=== PATIENT | female | born 1985 | race Caucasian/White ===

== ENCOUNTER → 2017-04-11 13:21 | Outpatient (REF) | payer MEDICAID, SELFPAY ==
[2017-04-11 19:09] LABS: Amphetamine/Metha Screen,Urine Negative ng/mL (<1000); Barbiturates Screen,Urine Negative ng/mL (<200); Benzodiazepines Screen,Urine Negative ng/mL (200); Cannabinoid Screen,Urine Negative ng/mL (<50); Cocaine Screen,Urine Negative ng/g (<300); Methadone Screen,Urine Negative ng/mL (<300); Opiate Screen,Urine Negative ng/mL (<300); Phencyclidine Screen,Urine Negative ng/mL (<25)
== END ==
LOC: LAB 13:21
PROVIDERS: Visit Provider Nurse Practitioner Family
DX: Z79.899 Other long term (current) drug therapy (principal)
CPT/HCPCS: 80305

== ENCOUNTER → 2017-05-14 17:30 | Outpatient (REF) | payer MEDICAID, SELFPAY | LOC: LAB 17:30 | PROVIDERS: Visit Provider Nurse Practitioner Obstetrics & Gynecology | DX: Z34.90 Encounter for supervision of normal pregnancy, unspecified, unspecified trimester (principal) | CPT/HCPCS: 86403 ==

== ENCOUNTER 2017-06-03 18:40 | Outpatient (CLI) | payer MEDICAID, SELFPAY ==
[2017-06-03 18:50] VITALS: BMI 30.9
[2017-06-03 19:08] LABS: Microscopic, Urine URINE MICROSCOPIC (MICROSCOPIC)
[2017-06-03 19:11] LABS: Appearance,Urine CLEAR (Clear); Bilirubin,Urine Negative (Negative); Blood, Urine 1+ (Negative); Color,Urine YELLOW (Yellow); Glucose,Urine (UA) Negative (Negative); Ketones,Urine Negative (Negative); Leukocyte Esterase,Urine TRACE (Negative); Nitrate,Urine Negative (Negative); Protein,Urine Negative (Negative); Urobilinogen,Urine 0.2 EU/dl (0.2)
[2017-06-03 19:15] VITALS: BP 132/85; PULSE 121; RESP 18; TEMP 36.9; O2SAT 99; BMI 30.9
[2017-06-03 19:27] LABS: Amphetamine/Metha Screen,Urine Negative ng/mL (<1000); Barbiturates Screen,Urine Negative ng/mL (<200); Benzodiazepines Screen,Urine Negative ng/mL (200); Cannabinoid Screen,Urine Negative ng/mL (<50); Cocaine Screen,Urine Negative ng/g (<300); Methadone Screen,Urine Negative ng/mL (<300); Opiate Screen,Urine Negative ng/mL (<300); Phencyclidine Screen,Urine Negative ng/mL (<25)
[2017-06-03 19:59] LABS: Bacteria,Urine 1+ /lpf; WBC,Urine Occasional #/hpf (0-3)
== END 2017-06-03 20:44 | disposition home or self-care (01) ==
LOC: OBOUT 18:45 → OB 18:48
PROVIDERS: PCP Nurse Practitioner Obstetrics & Gynecology; Visit Provider Obstetrics & Gynecology
DX: O60.03 Preterm labor without delivery, third trimester (principal); Z3A.38 38 weeks gestation of pregnancy
CPT/HCPCS: 59025; 80305; 81001

== ENCOUNTER 2017-06-11 05:08 | Inpatient (IN) ==
[2017-06-11 05:45] LABS: Appearance,Urine CLEAR (Clear); Bilirubin,Urine Negative (Negative); Blood, Urine 1+ (Negative); Color,Urine YELLOW (Yellow); Glucose,Urine (UA) Negative (Negative); Ketones,Urine Negative (Negative); Leukocyte Esterase,Urine Negative (Negative); Microscopic, Urine URINE MICROSCOPIC (MICROSCOPIC); Protein,Urine TRACE (Negative); Specific Gravity, Urine 1.015 (1.005-1.030); Urobilinogen,Urine 0.2 EU/dl (0.2)
[2017-06-11 05:46] LABS: Basophils # 0.1 K/mm3 (0-0.2); Basophils % 0.3 % (0.1-2.0); Eosinophils # 0.2 K/mm3 (0.0-0.4); Eosinophils % 1.3 % (0.1-12.0); Hematocrit 35.5 % (37.0-47.0); Lymphocytes % 19.8 K/mm3 (10-50); Mean Corpuscular Hemoglobin 32.4 pg (27.0-31.2); Mean Corpuscular Volume 95.3 fl (81-99); Mean Platelet Volume 8.9 fl (7.4-10.4); Monocytes # 0.8 K/mm3 (0.1-1.0); Monocytes % 5.2 % (1.7-9.3); Neutrophils % 73.3 % (37.0-80.0); Platelet Count 201 K/mm3 (142-424); Red Blood Count 3.72 M/mm3 (4.20-5.40); Red Cell Distribution Width 13.2 % (11.5-17.5)
[2017-06-11 05:52] LABS: Bacteria,Urine Trace /lpf; Squamous Epithelial Cell,Urine 20-50 #/hpf (0-5)
[2017-06-11 06:05] LABS: Anisocytosis 1+; Hypochromasia 1+; Lymphocytes % 16 % (10-50); Monocytes % 5 % (2-9); Neutrophils % 79 % (42-76); Stomatocytes 1+; Total Cells Counted 100
[2017-06-11 07:43] LABS: Amphetamine/Metha Screen,Urine Negative ng/mL (<1000); Barbiturates Screen,Urine Negative ng/mL (<200); Benzodiazepines Screen,Urine Negative ng/mL (200); Cannabinoid Screen,Urine Negative ng/mL (<50); Cocaine Screen,Urine Negative ng/g (<300); Methadone Screen,Urine Negative ng/mL (<300); Opiate Screen,Urine Negative ng/mL (<300); Phencyclidine Screen,Urine Negative ng/mL (<25)
--- NOTE | 2017-06-11 08:09 | History & Physical Report ---
OB - H&P: HPI Antepartum - History of Present Illness Chief complaint: Contraction History of present illness: She is a 31-year-old 4 para 3 who has a history of fast labor with her last baby. She is 39 weeks gestational age. As result of that she was offered augmentation of labor. She was adolfo on arrival and her nonstress test is reactive. - History of Present Criteria for establishing EDC:: LMP confirmed by 1st trimester US care: good care Ultrasounds: normal 1st trimester US, normal mid trimester US Obstetrical complications: none Medical complications: none [facility] History I have reviewed the patient's past medical history: Yes Medical History: Reports:: Anxiety, Depression, Heart Murmur, Kidney Stones Denies:: Cancer, Diabetes Mellitus Type 1, Diabetes Mellitus Type 2, MRSA Other Medical History: Reports: Other Laterality Cases: Bilateral: Other Other Surgeries: Yes: Colonoscopy, Hernia Repair. No: Amputation: No Fractures: No - *Social History Smoking Status: Current every day smoker Tobacco Type: cigarettes Alcohol Intake: never Substance Use Type: denies use - Psychiatric History Pschychiatric History:: Reports:: Anxiety, Depression *Family Hx:: Diabetes, Coronary Artery Disease, Heart Attack, Hypertension, Cancer, Kidney Disease, Thyroid Disorder, Stroke, Asthma [employer]P [employer]ESS [employer]ENDER history: Spontaneous Para: 3 Meds Home Medications Medication Instructions Recorded Confirmed Type 1 tab PO QDAY 03/07/17 06/11/17 History vitamin,calcium,kmifudai-dpse-zzyvw acid tablet promethazine 12.5 mg tablet 12.5 mg PO Q6H PRN tab 03/07/17 06/11/17 History Gabapentin [Neurontin 600mg 600 mg PO TID 06/08/17 06/11/17 History tablet] raNITIdine HCl [Ranitidine HCl] 150 mg PO BID 06/08/17 06/11/17 History Amoxicillin [Amoxicillin 500mg Tab] 500 mg PO TID 06/11/17 06/11/17 History Allergies Allergy/AdvReac Type Severity Reaction Status Date / Time hydrocodone [HYDROCODONE] Allergy Unknown Verified 06/10/17 11:11 sulfamethoxazole Allergy Unknown Verified 06/10/17 11:11 [From BACTRIM] tramadol [TRAMADOL] Allergy Unknown Verified 06/10/17 11:11 trimethoprim [From BACTRIM] Allergy Unknown Verified 06/10/17 11:11 Epidural Allergy Itchy Uncoded 06/10/17 11:11 OB - H&P: Exam - Physical Exam Vital signs: Temp Pulse Resp BP 98.0 F 83 18 105/56 06/11/17 06:36 06/11/17 06:36 06/11/17 06:36 06/11/17 06:36 - Constitutional no acute distress - Routine Exam Comments: Her cervix is 2 cm 50% and the presenting part is still quite high. She is having contractions every 2 minutes. We will await the baby's head coming down before he ruptured membranes. OB - Results - Labs Labs: Short CBC 06/11/17 Range/Units 05:30 WBC 15.0 H (4.8-10.8) K/mm3 Hgb 12.0 L (12.2-16.2) g/dL Hct 35.5 L (37.0-47.0) % Plt Count 201 (142-424) K/mm3 Urine 06/11/17 Range/Units 05:18 Urine Color Yellow (Yellow) Urine Appearance Clear (Clear) Urine pH 7.0 (5.0-8.5) Ur Specific [place] 1.015 (1.005-1.030) Urine Protein Trace (Negative) Urine Glucose (UA) Negative (Negative) OB - A/P Antepartum (1) Normal delivery at term Current visit: Yes Status: Acute - Additional Plan Planning to breastfeed?: Yes Plan: expectant management (She has been) Additional Information:: She has been started on IV oxytocin and she is adolfo now every 2 minutes. Her cervix is 2 cm dilated. We will allow the head to come down a little more before we elected to treat her membranes.
--- NOTE | 2017-06-11 09:43 | Progress Note ---
Labor Note - Subjective: Date: 06/11/17 Time: 09:42 regular contraction - Objective: NST:: Reactive Contractions:: every 2-3 minutes Cervical Dilation:: 2-3 Effacement:: 75% Station: -3 Membranes: articially ruptured Comment:: Copious clear fluid - Fetus: Monitoring?: Yes monitoring type:: Internal and External Comment:: I inserted and IUPC - Assessment: Labor progressing?: Yes Cephalopelvic disproportion?: No Patient Problems: All Active Problems Tooth fracture (Acute) Dental caries (Acute) Normal delivery at term (Acute) Low back pain (Chronic) (Acute) - Plan: Anesthesia for epidural?: No Continue to labor down?: Yes Plan for ?: No Continue to monitor?: Yes Start pushing?: No Comment:: I ruptured her membranes and inserted and IUPC. The nonstress test is reactive. She is adolfo every 2 minutes.
--- NOTE | 2017-06-11 11:54 | Progress Note ---
Labor Note - Subjective: Date: 06/11/17 Time: 11:53 regular contraction - Objective: NST:: Reactive Contractions:: every 2-3 minutes Cervical Dilation:: 4 Effacement:: 75% Station: -2 Membranes: articially ruptured - Fetus: Monitoring?: Yes monitoring type:: Internal and External - Assessment: Labor progressing?: Yes Cephalopelvic disproportion?: No Patient Problems: All Active Problems Tooth fracture (Acute) Dental caries (Acute) Normal delivery at term (Acute) Low back pain (Chronic) (Acute) - Plan: Anesthesia for epidural?: Yes Continue to labor down?: Yes Plan for ?: No Continue to monitor?: Yes Start pushing?: No
--- NOTE | 2017-06-11 13:41 | Progress Note ---
Labor Note - Subjective: Date: 06/11/17 Time: 13:40 regular contraction - Objective: NST:: Reactive Contractions:: every 2-3 minutes Cervical Dilation:: 5 Effacement:: 75% Station: -2 Membranes: articially ruptured - Fetus: Monitoring?: Yes monitoring type:: Internal and External - Assessment: Labor progressing?: Yes Cephalopelvic disproportion?: No Patient Problems: All Active Problems Tooth fracture (Acute) Dental caries (Acute) Normal delivery at term (Acute) Low back pain (Chronic) (Acute) - Plan: Anesthesia for epidural?: Yes Continue to labor down?: Yes Plan for ?: No Continue to monitor?: Yes Start pushing?: No
--- NOTE | 2017-06-11 15:14 | Progress Note ---
Labor Note - Subjective: Date: 06/11/17 Time: 15:13 regular contraction - Objective: Contractions:: every 2-3 minutes Cervical Dilation:: 6 Effacement:: 100% Station: -2 Membranes: articially ruptured - Fetus: Monitoring?: Yes monitoring type:: Internal - Assessment: Labor progressing?: Yes Cephalopelvic disproportion?: No Patient Problems: All Active Problems Tooth fracture (Acute) Dental caries (Acute) Normal delivery at term (Acute) Low back pain (Chronic) (Acute) - Plan: Anesthesia for epidural?: Yes Continue to labor down?: Yes Plan for ?: No Continue to monitor?: Yes Start pushing?: No Comment:: She had a prolonged deceleration with tetanic contraction. She had 3 contractions right on top of each other. The heart rate has now recovered. Her oxytocin was turned off. We will start her oxytocin back at 2 mU/min. We will continue to monitor her closely. She does have an intrauterine pressure catheter with an amnioinfusion going.
--- NOTE | 2017-06-11 17:13 | Progress Note ---
Labor Note - Subjective: Date: 06/11/17 Time: 17:12 regular contraction - Objective: NST:: Reactive Contractions:: every 2-3 minutes Cervical Dilation:: 9 Effacement:: 100% Membranes: articially ruptured - Fetus: Monitoring?: Yes monitoring type:: Internal - Assessment: Labor progressing?: Yes Cephalopelvic disproportion?: No Patient Problems: All Active Problems Tooth fracture (Acute) Dental caries (Acute) Normal delivery at term (Acute) Low back pain (Chronic) (Acute) - Plan: Anesthesia for epidural?: Yes Continue to labor down?: Yes Plan for ?: No Continue to monitor?: Yes Start pushing?: No Comment:: She has had some significant decelerations and her oxytocin is now turned off. Her contractions have become weaker. As result of that we will go ahead and start restart her oxytocin since the heart rate is now stabilized. She has significant molding of the head and there is just a small amount of cervix anteriorly. Hopefully the baby's head will descend with the contractions. I had her push slightly and it certainly brought the baby's head down a little bit so will see how she does with more oxytocin.
--- NOTE | 2017-06-11 19:16 | Progress Note ---
Labor Note - Subjective: Date: 06/11/17 Time: 19:15 regular contraction - Objective: NST:: Reactive Contractions:: every 2-3 minutes Cervical Dilation:: 9-10 Effacement:: 100% Station: 0 Membranes: articially ruptured - Fetus: Monitoring?: Yes monitoring type:: Internal - Assessment: Labor progressing?: Yes Cephalopelvic disproportion?: No Patient Problems: All Active Problems Tooth fracture (Acute) Dental caries (Acute) Normal delivery at term (Acute) Low back pain (Chronic) (Acute) - Plan: Anesthesia for epidural?: Yes Continue to labor down?: Yes Plan for ?: No Continue to monitor?: Yes Start pushing?: Yes Additional information:: She is feeling a little more pressure in the baby's head is come down. We will go ahead and have her start pushing. She is fully dilated.
--- NOTE | 2017-06-11 19:52 | Procedure Note ---
- Delivery Note Delivery Date:: 06/11/17 Delivery Time:: 19:39 Anesthesia Type: Epidural Was labor medically induced?: No Infant delivered prior to 39 weeks?: No Infant Gender: Female at 1 minute: 8 at 5 minutes: 9 Delivery Procedure:: She is a 31-year-old 4 para 3 who is 39+ weeks gestational age. She came in having a few contractions and was found to be 2 cm dilated. As result of this we elected to augment her labor. She had her membranes ruptured and under labor epidural progressed to full dilation. She delivered spontaneously a liveborn female child at 7:39 PM in the June 11, 2017. The baby had Apgars of 8 at 1 minute and 9 at 5 minutes. On deliver the head it was noted that there was a loose nuchal cord. Was able to easily reduce the cord. This is followed by the anterior shoulder and the rest of his body atraumatically. The baby was stimulated and cried spontaneously. The oropharynx and nasopharynx were bulb suctioned. The cord was then clamped and after 1 minute. The baby was then handed off to nurses who assigned Apgars of 8 at 1 minute and 9 at 5 minutes. We then obtained cord blood as well as cord pH. Patient then received IV oxytocin. Using gentle traction on the cord and countertraction on the fundus I was able to easily deliver the placenta intact. Had a normal three-vessel cord. There were no perineal or vaginal lacerations. She has O+ blood, she is rubella immune and was group B streptococcus negative. She plans to bottle feed. Her refractory repairer is Dr. Garay. Estimated blood loss was approximately 400 cc. Placental Delivery Description: Spontaneous
[2017-06-12 06:29] LABS: Hematocrit 28.2 % (37.0-47.0); Hemoglobin 9.7 g/dL (12.2-16.2)
--- NOTE | 2017-06-12 08:02 | Progress Note ---
Internal Medicine - PN: Subj *Date: 06/12/17 *Time: 08:01 Interval history: She is doing well this morning. She is eating and drinking and ambulating. She is bottlefeeding. Her lochia is normal. Exam Vital signs and Labs for Last 24 Hours: Temp Pulse Resp BP 98.0 F 83 18 105/56 06/11/17 06:36 06/11/17 06:36 06/11/17 06:36 06/11/17 06:36 Laboratory Results - last 24 hr 06/12/17 06:15: Hgb 9.7 L, Hct 28.2 L I & O for Last 24 hours: Intake & Output 06/09/17 06/10/17 06/11/17 06/12/17 11:59 11:59 11:59 11:59 Weight 168 lb 2 oz - Constitutional no acute distress Assessment and Plan (1) Normal delivery at term Current visit: Yes Status: Acute Category: Medical Code(s): O80 - Encounter for full-term uncomplicated delivery - Assessment and plan all Dx Assessment and Plan for all problems:: She continues to do very well. She is eating and taking and ambulating. Her blood counts are stable. We will plan to send her home tomorrow.
[2017-06-12 20:22] VITALS: BP 121/66
--- NOTE | 2017-06-13 08:00 | Discharge Summary ---
General - General Admission date:: 06/11/17 Discharge date: 06/13/17 HPI HPI: She is a 31-year-old 4 now para 4 who is 39-1/2 weeks gestational age. She was having a few contractions we elected to augment her labor. Hospital Course Hospital Course: She was started on IV oxytocin had her membranes ruptured and progressed to full dilation. She delivered spontaneously a viable female child. Baby had Apgars of 8 at 1 minute and She has done well and has remained afebrile throughout her hospitalization. She is eating and drinking and ambulating. She is bottlefeeding. Her lochia is normal. She is discharged home to follow-up with me in approximately 2 weeks time. We will do a bilateral salpingectomy when she is 6 weeks . Objective Vital signs: Temp Pulse Resp BP Pulse Ox 97.3 F L 75 18 121/66 99 06/12/17 19:58 06/12/17 19:58 06/12/17 19:58 06/12/17 19:58 06/12/17 19:58 no acute distress DS: Diagnosis - Discharge Diagnosis (1) Normal delivery at term Status: Acute Discharge Plan - Patient Discharge Instructions ACTIVITY: No heavy lifting DIET: continue same diet - Follow up Plan Disposition: Home, Self-Usp Medications: Home Medications Medication Instructions Recorded Confirmed Type 1 tab PO DAILY 03/07/17 06/11/17 History vitamin,calcium,lglawixs-nfoi-gwabl acid tablet promethazine 12.5 mg tablet 12.5 mg PO Q6H PRN tab 03/07/17 06/11/17 History Gabapentin [Neurontin 600mg 600 mg PO TID 06/08/17 06/11/17 History tablet] raNITIdine HCl [Ranitidine HCl] 150 mg PO BID 06/08/17 06/11/17 History Amoxicillin [Amoxicillin 500mg 500 mg PO TID 06/12/17 06/12/17 History Cap] Prescriptions/Medication Reconciliation: Continue vitamin,calcium,lxuwpjmu-lrxx-qtnrk acid tablet 1 tab PO DAILY promethazine 12.5 mg tablet 12.5 mg PO Q6H PRN tab PRN Reason: NAUSEA/VOMITING Gabapentin [Neurontin 600mg tablet] 600 mg PO TID raNITIdine HCl [Ranitidine HCl] 150 mg PO BID Amoxicillin [Amoxicillin 500mg Cap] 500 mg PO TID
== END 2017-06-13 09:40 | disposition home or self-care (01) ==
LOC: OB 05:08
PROVIDERS: ADMIT Nurse Practitioner Obstetrics & Gynecology; ATTEND Nurse Practitioner Obstetrics & Gynecology

== ENCOUNTER → 2017-08-02 14:24 | Outpatient (CLI) | payer MEDICAID, SELFPAY ==
[2017-08-02 19:08] LABS: Amphetamine/Metha Screen,Urine Negative ng/mL (<1000); Barbiturates Screen,Urine Negative ng/mL (<200); Benzodiazepines Screen,Urine Positive ng/mL (200); Cannabinoid Screen,Urine Negative ng/mL (<50); Cocaine Screen,Urine Negative ng/g (<300); Methadone Screen,Urine Negative ng/mL (<300); Opiate Screen,Urine Negative ng/mL (<300); Phencyclidine Screen,Urine Negative ng/mL (<25)
== END ==
PROVIDERS: Visit Provider Nurse Practitioner Family
DX: Z79.899 Other long term (current) drug therapy (principal)
CPT/HCPCS: 80305

== ENCOUNTER → 2017-09-27 14:59 | Outpatient (REF) | payer MEDICAID, SELFPAY ==
[2017-09-27 21:05] LABS: Amphetamine/Metha Screen,Urine Negative ng/mL (<1000); Barbiturates Screen,Urine Negative ng/mL (<200); Benzodiazepines Screen,Urine Positive ng/mL (<200); Cannabinoid Screen,Urine Negative ng/mL (<50); Cocaine Screen,Urine Negative ng/mL (<300); Methadone Screen,Urine Negative ng/mL (<300); Opiate Screen,Urine Positive ng/mL (<300); Phencyclidine Screen,Urine Negative ng/mL (<25)
== END ==
LOC: LAB 14:59
PROVIDERS: Visit Provider Nurse Practitioner Family
DX: Z79.899 Other long term (current) drug therapy (principal)
CPT/HCPCS: 80305

== ENCOUNTER → 2017-10-30 13:01 | Outpatient (REF) | payer MEDICAID, SELFPAY ==
[2017-10-30 18:10] LABS: Amphetamine/Metha Screen,Urine Negative ng/mL (<1000); Barbiturates Screen,Urine Negative ng/mL (<200); Benzodiazepines Screen,Urine Positive ng/mL (<200); Cannabinoid Screen,Urine Negative ng/mL (<50); Cocaine Screen,Urine Negative ng/mL (<300); Methadone Screen,Urine Negative ng/mL (<300); Opiate Screen,Urine Negative ng/mL (<300); Phencyclidine Screen,Urine Negative ng/mL (<25)
== END ==
LOC: LAB 13:01
PROVIDERS: Visit Provider Nurse Practitioner Family
DX: Z79.899 Other long term (current) drug therapy (principal)
CPT/HCPCS: 80305

== ENCOUNTER → 2017-11-28 11:38 | Outpatient (CLI) | payer MEDICAID, SELFPAY | PROVIDERS: PCP Nurse Practitioner Family; Visit Provider Nurse Practitioner Family | DX: Z79.899 Other long term (current) drug therapy (principal) ==

== ENCOUNTER → 2018-01-06 16:42 | Outpatient (CLI) | payer MEDICAID, SELFPAY ==
[2018-01-06 17:05] LABS: Amphetamine/Metha Screen,Urine Negative ng/mL (<1000); Barbiturates Screen,Urine Negative ng/mL (<200); Benzodiazepines Screen,Urine Positive ng/mL (<200); Cannabinoid Screen,Urine Negative ng/mL (<50); Cocaine Screen,Urine Negative ng/mL (<300); Methadone Screen,Urine Negative ng/mL (<300); Opiate Screen,Urine Negative ng/mL (<300); Phencyclidine Screen,Urine Negative ng/mL (<25)
[2018-01-11 12:11] LABS: Alprazolam Positive (.); Benzodiazepines Positive ng/mL (Cutoff=100); Clonazepam Negative (Cutoff=100); Flurazepam Negative (Cutoff=100); Lorazepam Negative (Cutoff=100); Midazolam Negative (Cutoff=100); Temazepam Negative (Cutoff=100); Triazolam Negative (Cutoff=100)
== END ==
PROVIDERS: Visit Provider Nurse Practitioner Family
DX: G62.9 Polyneuropathy, unspecified (principal)
CPT/HCPCS: 80305; 80346

== ENCOUNTER → 2018-01-31 14:11 | Outpatient (CLI) | payer MEDICAID, SELFPAY ==
[2018-01-31 17:19] LABS: Amphetamine/Metha Screen,Urine Negative ng/mL (<1000); Barbiturates Screen,Urine Negative ng/mL (<200); Benzodiazepines Screen,Urine Positive ng/mL (<200); Cannabinoid Screen,Urine Negative ng/mL (<50); Cocaine Screen,Urine Negative ng/mL (<300); Methadone Screen,Urine Negative ng/mL (<300); Opiate Screen,Urine Positive ng/mL (<300); Phencyclidine Screen,Urine Negative ng/mL (<25)
[2018-02-12 10:18] LABS: Alprazolam Positive (.); Benzodiazepines Positive ng/mL (Cutoff=100); Clonazepam Negative (Cutoff=100); Flurazepam Negative (Cutoff=100); Lorazepam Negative (Cutoff=100); Midazolam Negative (Cutoff=100); Temazepam Negative (Cutoff=100); Triazolam Negative (Cutoff=100)
[2018-02-12 16:18] LABS: Opiates Negative ng/mL (Cutoff=100)
== END ==
PROVIDERS: Physician Assistant; Visit Provider Nurse Practitioner Family
DX: Z79.899 Other long term (current) drug therapy (principal)
CPT/HCPCS: 80305; 80346; 80361; G0480

== ENCOUNTER → 2018-05-09 17:09 | Outpatient (CLI) | payer MEDICAID, SELFPAY ==
[2018-05-09 18:25] LABS: Amphetamine/Metha Screen,Urine Negative ng/mL (<1000); Barbiturates Screen,Urine Negative ng/mL (<200); Benzodiazepines Screen,Urine Positive ng/mL (<200); Cannabinoid Screen,Urine Negative ng/mL (<50); Cocaine Screen,Urine Negative ng/mL (<300); Methadone Screen,Urine Negative ng/mL (<300); Opiate Screen,Urine Negative ng/mL (<300); Phencyclidine Screen,Urine Negative ng/mL (<25)
== END ==
PROVIDERS: Visit Provider Nurse Practitioner Family
DX: Z79.899 Other long term (current) drug therapy (principal)
CPT/HCPCS: 80305

== ENCOUNTER → 2018-08-08 12:25 | Outpatient (CLI) | payer MEDICAID, SELFPAY ==
[2018-08-08 13:38] LABS: Basophils # 0.1 K/mm3 (0-0.2); Basophils % 0.6 % (0.1-2.0); Eosinophils # 0.1 K/mm3 (0.0-0.4); Eosinophils % 1.1 % (0.1-12.0); Hematocrit 44.7 % (37.0-47.0); Lymphocytes # 2.4 K/mm3 (0.7-4.5); Lymphocytes % 30.7 % (10-50); Mean Corpuscular HGB Conc 31.3 g/dL (31.8-35.4); Mean Corpuscular Hemoglobin 31.7 pg (27.0-31.2); Mean Corpuscular Volume 101.2 fl (81-99); Mean Platelet Volume 8.5 fl (7.4-10.4); Monocytes # 0.5 K/mm3 (0.1-1.0); Monocytes % 5.8 % (1.7-9.3); Neutrophils # 4.9 K/mm3 (1.8-7.8); Neutrophils % 61.8 % (37.0-80.0); Platelet Count 283 K/mm3 (142-424); Red Blood Count 4.41 M/mm3 (4.20-5.40); Red Cell Distribution Width 13.3 % (11.5-17.5); White Blood Count 7.9 K/mm3 (4.8-10.8)
[2018-08-08 15:04] LABS: Alanine Aminotransferase 22 U/L (12-78); Albumin/Globulin Ratio 1.3 (1.1-1.8); Alkaline Phosphatase 69 U/L (46-116); Anion Gap 15.5 mEq/L (5-15); Aspartate Amino Transferase 12 U/L (15-37); Bilirubin,Total 0.4 mg/dL (0.2-1.0); Blood Urea Nitrogen 8 mg/dL (7-18); Calcium 8.7 mg/dL (8.5-10.1); Carbon Dioxide 25 mmol/L (21.0-32.0); Chloride 104 mmol/L (98-107); Chol/HDL Ratio 5.7 (1-3.5); Cholesterol 165 mg/dL (140-200); Creatinine,Serum 0.94 mg/dL (0.55-1.02); Estimated Glomerular Filt Rate 69 ml/min (>60); Free T4 (Free Thyroxine) 1.38 ng/dl (0.76-1.46); GFR (African American) 84 ML/MIN (>60); Globulin 3.2 gm/dl (1.3-3.2); Glucose 86 mg/dL (74-106); HDL Cholesterol 29 mg/dL (29-89); LDL Cholesterol 100 mg/dL (0-130); Potassium 3.5 mmoL/L (3.5-5.1); Sodium 141 mmol/L (136-145); Thyroid Stimulating Hormone 1.43 uIU/ml (0.358-3.740); Total Protein,Serum 7.2 gm/dL (6.4-8.2); Triglycerides 182 mg/dL (30-200); VLDL Cholesterol 36 mg/dL (0-40)
[2018-08-08 15:43] LABS: Erythrocyte Sedimentation Rate 15 mm/hr (0-20)
[2018-08-08 18:33] LABS: C-Reactive Protein < 0.2 mg/L (0.0-0.9)
[2018-08-09 16:08] LABS: PTT-LA 41.8 sec (0.0-51.9); dRVVT 46.9 sec (0.0-47.0)
[2018-08-09 18:36] LABS: Lupus Reflex Interpretation Comment: (.); RA Latex Turbid. <10.0 IU/mL (0.0-13.9); Triiodothyronine (T3) Free 3.4 pg/mL (2.0-4.4)
[2018-08-09 18:37] LABS: Vitamin D 25 Hydroxy 34.6 ng/mL (30.0-100.0)
[2018-08-11 03:27] LABS: Anti-Cyclic Citrullinated Pept 2 units (0-19)
[2018-08-11 11:10] LABS: Anti-Centromere B Antibodies <0.2 AI (0.0-0.9); Anti-Jo-1 <0.2 AI (0.0-0.9); Anti-Smith Antibody <0.2 AI (0.0-0.9); Antichromatin Antibodies 0.3 AI (0.0-0.9); Antiscleroderma-70 Antibodies <0.2 AI (0.0-0.9); RNP Antibodies <0.2 AI (0.0-0.9); Sjogren's Anti-SS-A <0.2 AI (0.0-0.9); Sjogren's Anti-SS-B <0.2 AI (0.0-0.9)
[2018-08-11 18:17] LABS: Anti-DNA (DS) Ab Qn 1 IU/mL (0-9)
== END ==
PROVIDERS: Visit Provider Nurse Practitioner Family
DX: M25.50 Pain in unspecified joint (principal); R53.83 Other fatigue; F41.9 Anxiety disorder, unspecified; Z79.899 Other long term (current) drug therapy
CPT/HCPCS: 80053; 80061; 82652; 84439; 84443; 84481; 85025; 85613; 85651; 86140; 86200; 86225; 86235; 86431

== ENCOUNTER → 2018-12-19 13:57 | Outpatient (CLI) | payer MEDICAID, SELFPAY ==
[2018-12-19 14:54] LABS: Amphetamine/Metha Screen,Urine Negative ng/mL (<1000); Barbiturates Screen,Urine Negative ng/mL (<200); Benzodiazepines Screen,Urine Positive ng/mL (<200); Cannabinoid Screen,Urine Negative ng/mL (<50); Cocaine Screen,Urine Negative ng/mL (<300); Methadone Screen,Urine Negative ng/mL (<300); Opiate Screen,Urine Negative ng/mL (<300); Phencyclidine Screen,Urine Negative ng/mL (<25)
== END ==
PROVIDERS: Visit Provider Nurse Practitioner Family
DX: Z79.899 Other long term (current) drug therapy (principal)
CPT/HCPCS: 80305

== ENCOUNTER → 2018-12-24 14:27 | Outpatient (CLI) | payer MEDICAID, SELFPAY ==
--- NOTE | 2018-12-24 14:41 | XR_ITS ---
PROCEDURE: XR LUMBAR SPINE 2-3V CLINICAL INDICATION: pain Low back pain COMPARISON: LS5 LUMBAR SPINE 5 VIEWS from 10/26/2015 FINDINGS: There is normal alignment. No fracture or dislocation. No lytic or blastic change. Incidental note is made of small bilateral renal calculi measuring up to 3 mm in the lower pole on the left and 1-2 mm in the mid polar region on the right IMPRESSION: 1. Negative lumbar spine. 2. Bilateral nephrolithiasis Dictated by: Balta Carcamo MD 12/24/2018 15:02 Electronically signed by Balta Carcamo MD in [place] 12/24/2018 15:02
--- NOTE | 2018-12-24 14:41 | XR_ITS ---
PROCEDURE: XR THORACIC SPINE 3V CLINICAL INDICATION: pain Upper back pain COMPARISON: No exams were available for comparison FINDINGS: There is normal alignment. No fracture or dislocation. No lytic or blastic change. IMPRESSION: Negative thoracic spine Dictated by: Balta Carcamo MD 12/24/2018 15:01 Electronically signed by Balta Carcamo MD in [place] 12/24/2018 15:01
== END ==
PROVIDERS: PCP Nurse Practitioner Family; Visit Provider Nurse Practitioner Family
DX: M54.5 Low back pain (principal); M54.6 Pain in thoracic spine
CPT/HCPCS: 72072; 72100

== ENCOUNTER → 2019-02-12 14:05 | Outpatient (CLI) | payer OTHER, SELFPAY ==
[2019-02-12 20:04] LABS: Amphetamine/Metha Screen,Urine Negative ng/mL (<1000); Barbiturates Screen,Urine Negative ng/mL (<200); Benzodiazepines Screen,Urine Positive ng/mL (<200); Cannabinoid Screen,Urine Negative ng/mL (<50); Cocaine Screen,Urine Negative ng/mL (<300); Methadone Screen,Urine Negative ng/mL (<300); Opiate Screen,Urine Negative ng/mL (<300); Phencyclidine Screen,Urine Negative ng/mL (<25)
== END ==
PROVIDERS: Visit Provider Nurse Practitioner Family
DX: Z79.899 Other long term (current) drug therapy (principal)
CPT/HCPCS: 80305

== ENCOUNTER → 2019-03-12 10:43 | Outpatient (POV) | payer OTHER, SELFPAY ==
[2019-03-12 10:59] VITALS: BP 166/62; PULSE 94; RESP 18; O2SAT 99; BMI 28.3
--- NOTE | 2019-03-12 11:20 | HMH.PMCON ---
Assessment and Plan (1) Low back pain Current visit: Yes Status: Acute Category: Medical Code(s): M54.5 - Low back pain (2) Lumbar radiculopathy Current visit: Yes Status: Acute Category: Medical Code(s): M54.16 - Radiculopathy, lumbar region - Assessment and plan all Dx Assessment and Plan for all problems:: Unfortunately, the patient does not have any recent imaging of her lumbar spine. We will order an MRI of her lumbar spine to discuss the plan of care. Until then the patient will continue with anti-inflammatories and a home stretching program. She will also stop taking gabapentin at this time, and we will start her on Lyrica 200 mg 1 tablet p.o. twice daily. We will see the patient back in the clinic following her MRI to discuss plan of care. She has been instructed to contact the clinic if she has any concerns before next appointment. Dr. Ramon has reviewed this note and agrees with this plan of care. This note was dictated using voice recognition software and make contain errors or omissions. HPI - Data of Consult Patient: new to practice Consult date: 03/12/19 Requesting Physician: Wilma Timmons APRN Primary Care Provider: Julian Garland MD - Consult Narrative History of present illness: Ms. Carney is a 33 year old female. Who presents today for consultation for low back pain with radiation into her left hip and left leg. Patient says this is been chronic pain for her for more than 20 years. She says she has scoliosis with chronic low back pain. She also says she has chronic left leg pain with numbness and tingling into her left leg. She says this pain is been treated in the past with gabapentin. She initially started on a low dose of gabapentin and is now on 600 mg 1 tablet p.o. 3 times daily. She says that the medication is not working for her any longer. She rates her pain a 8 out of 10. She denies any side effects to the medication. She says her pain is worse with standing or walking and is improved with sitting. She says her knee also hurts when she does long walks. Patient has had physical therapy for greater than 6 weeks. She continues with a home stretching program of exercises learned from physical therapy. She also says that she is using ice and heat therapies along with anti-inflammatories. CC: Wilma Timmons APRN [facility] History I have reviewed the patient's past medical history: Yes Medical History: Reports:: Anxiety, Depression, Gastroesophageal Reflux Disease(GERD), Heart Murmur, Kidney Stones Denies:: Cancer, Diabetes Mellitus Type 1, Diabetes Mellitus Type 2, Internal Pacemaker, MRSA, Seizures *Have you ever received a pneumonia vaccine?: Yes *Have you received a flu vaccine this season?: Yes Other Medical History: Reports: Other. Denies: Blood Transfusion Reaction Laterality Cases: Bilateral: Other Other Surgeries: Yes: BSO, Colonoscopy, Hernia Repair, Tubal Ligation. No: , Pacemaker Amputation: No Fractures: Yes - *Social History Smoking Status: Current every day smoker Tobacco Type: cigarettes # Packs/Day (cigarettes): 1 Alcohol Intake: never Substance Use Type: denies use *Occupational Status:: other Housing: house Household Members: significant other, family *Travel in the last 8 weeks: None - Psychiatric History Pschychiatric History:: Reports:: Anxiety, Depression Family Hx:: Diabetes, Coronary Artery Disease, Heart Attack, Hypertension, Cancer, Kidney Disease, Thyroid Disorder, Stroke, Asthma [employer]IVERSITY [employer]ER history: Spontaneous Review of Systems - Review of Systems Review of Systems General: No recent weight changes, no fever, no sleep disturbances Respiratory: No cough, no shortness of air, no recurring pulmonary infections Cardiovascular/peripheral vascular: No chest pain, no palpitations, no edema, no shortness of breath Gastrointestinal: No new onset incontinence, normal bowel movements reported Genitourinary: No new onset
== END ==
PROVIDERS: PCP Emergency Medicine; Visit Provider Clinical Nurse Specialist Family Health
DX: M54.16 Radiculopathy, lumbar region (principal); M54.5 Low back pain; Z79.891 Long term (current) use of opiate analgesic; Z79.899 Other long term (current) drug therapy; Z88.6 Allergy status to analgesic agent; Z88.1 Allergy status to other antibiotic agents; Z88.8 Allergy status to other drugs, medicaments and biological substances; Z72.0 Tobacco use
CPT/HCPCS: 99202

== ENCOUNTER → 2019-03-13 14:04 | Outpatient (CLI) | payer OTHER, SELFPAY ==
[2019-03-13 15:36] LABS: Amphetamine/Metha Screen,Urine Negative ng/mL (<1000); Barbiturates Screen,Urine Negative ng/mL (<200); Benzodiazepines Screen,Urine Positive ng/mL (<200); Cannabinoid Screen,Urine Negative ng/mL (<50); Cocaine Screen,Urine Negative ng/mL (<300); Methadone Screen,Urine Negative ng/mL (<300); Opiate Screen,Urine Negative ng/mL (<300); Phencyclidine Screen,Urine Negative ng/mL (<25)
== END ==
PROVIDERS: Visit Provider Emergency Medicine
DX: Z79.899 Other long term (current) drug therapy (principal)
CPT/HCPCS: 80305

== ENCOUNTER → 2019-03-24 15:01 | Outpatient (CLI) | payer OTHER, SELFPAY ==
--- NOTE | 2019-03-24 15:03 | MR_ITS ---
PROCEDURE: MR LUMBAR SPINE WO CON CLINICAL INDICATION: BACK PAIN Low back pain, left-sided low back pain with left leg pain and left hip pain COMPARISON: No exams were available for comparison TECHNIQUE: Standard multiplanar multiecho sequences are performed without contrast. 3-D MIP and myelographic images are also rendered and reviewed FINDINGS: Normal alignment. The spinal cord ends at the L1 level. The disc spaces are well preserved. No disc herniation significant bulge canal stenosis or degenerative change evident. The foramina are widely patent. The cauda equina has an unremarkable appearance. IMPRESSION: Negative MRI of the lumbar spine Dictated by: Balta Carcamo MD 03/26/2019 11:35 Electronically signed by Balta Carcamo MD in [place] 03/26/2019 11:35
== END ==
PROVIDERS: PCP Emergency Medicine; Visit Provider Clinical Nurse Specialist Family Health
DX: M54.5 Low back pain (principal)
CPT/HCPCS: 72148; 76376

== ENCOUNTER → 2019-07-09 10:13 | Outpatient (POV) | payer OTHER, SELFPAY ==
[2019-07-09 12:09] VITALS: BP 131/74; PULSE 101; RESP 18; TEMP 36.8; O2SAT 99; BMI 29.2
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
== END ==
PROVIDERS: PCP Emergency Medicine; Visit Provider Clinical Nurse Specialist Family Health
DX: M51.16 Intervertebral disc disorders with radiculopathy, lumbar region (principal); M54.12 Radiculopathy, cervical region
CPT/HCPCS: 99212

== ENCOUNTER → 2019-07-16 13:42 | Outpatient (CLI) | payer OTHER, SELFPAY ==
--- NOTE | 2019-07-16 13:43 | MR_ITS ---
PROCEDURE: MR CERVICAL SPINE WO CON CLINICAL INDICATION: NECK PAIN Neck pain radiating into the shoulders COMPARISON: No exams were available for comparison TECHNIQUE: Standard multiplanar multiecho sequences are performed without contrast. 3-D MIP and myelographic images are also rendered and reviewed FINDINGS: There is slight reversal of cervical lordosis. This is nonspecific and could be due to positioning muscle spasm. The craniocervical junction has an unremarkable appearance. There is normal alignment. The disc spaces are well preserved. No disc herniation, significant degenerative change, foraminal narrowing or canal stenosis evident. IMPRESSION: Reversal of normal cervical lordosis otherwise negative MRI of the cervical spine Dictated by: Balta Carcamo MD 07/17/2019 11:19 Electronically signed by Balta Carcamo MD in [place] 07/17/2019 11:19
== END ==
PROVIDERS: PCP Emergency Medicine; Visit Provider Anesthesiology
DX: M54.2 Cervicalgia (principal)
CPT/HCPCS: 72141; 76376

== ENCOUNTER 2019-07-17 11:08 | Day surgery (SDC) | payer OTHER, SELFPAY ==
[2019-07-17 12:09] VITALS: BP 130/69; PULSE 85; RESP 18; O2SAT 98; BMI 65.3
--- NOTE | 2019-07-17 12:25 | HMH.PMPROC ---
- Procedure Date: 07/17/19 Time: 12:25 Anesthesiologist:: Simone Ramon MD Complications:: None Pre-procedure Diagnosis:: Degenerative disc disease of lumbar spine with lumbar radiculopathy symptoms Post-procedure Diagnosis:: Same Indications for Procedure:: This patient is a pleasant 33-year-old white female who we are treating for low back pain with lumbar radiculopathy symptoms. She has increasing pain in the low back rating down her legs. We will do lumbar epidural steroid injections today to see if this helps with her pain symptoms. Has some increasing neck pain as well. Procedure Details:: Lumbar epidural steroid injection under fluoroscopy Informed consent was obtained and the risk and benefits of the procedure was explained to the patient. The patient was taken to the procedure room. The patient was placed prone on the procedure table. The patient was prepped and draped in sterile fashion. C-arm fluoroscopy was used to view the lumbar spine. Skin and subcutaneous tissues were anesthetized using lidocaine. I placed an 18-gauge epidural needle and advanced into the L4-L5 interspace using fluoroscopic guidance and [id number] to air. After confirmation of needle placement in the epidural space with dye I injected 2 mL of lidocaine 1.5% with Depo-Medrol 80 mg. Patient tolerated the procedure well with no complications. Plan and Disposition:: We will follow-up with her in 2 weeks. Will reevaluate her symptoms at that time.
[2019-07-17 12:31] VITALS: BP 133/78; PULSE 88; RESP 18; O2SAT 98
[2019-07-17 12:34] VITALS: BP 125/85; PULSE 85; RESP 18; O2SAT 98
[2019-07-17 12:44] VITALS: BP 122/76; PULSE 78; RESP 20; O2SAT 98
== END 2019-07-17 12:45 | disposition home or self-care (01) ==
LOC: SC.PAINP 11:10
PROVIDERS: PCP Emergency Medicine; Visit Provider Anesthesiology
DX: M51.16 Intervertebral disc disorders with radiculopathy, lumbar region (principal); Z72.0 Tobacco use; R01.1 Cardiac murmur, unspecified; Z87.442 Personal history of urinary calculi; Z87.448 Personal history of other diseases of urinary system; F41.9 Anxiety disorder, unspecified; G43.909 Migraine, unspecified, not intractable, without status migrainosus; Z88.8 Allergy status to other drugs, medicaments and biological substances; Z88.2 Allergy status to sulfonamides; Z79.899 Other long term (current) drug therapy
CPT/HCPCS: 62323; J1040; Q9966

== ENCOUNTER → 2019-08-04 09:11 | Outpatient (POV) | payer OTHER, SELFPAY ==
[2019-08-04 09:23] VITALS: BP 128/78; PULSE 84; RESP 18; O2SAT 98; BMI 29.2
--- NOTE | 2019-08-04 10:21 | HMH.PAINSOAP ---
[facility] Pain Management SOAP Note Subjective:: Patient is a pleasant 33-year-old white female who we are treating for low back pain. Patient had a lumbar epidural steroid injection to which she states she had a headache afterwards and 3 days of vomiting. She did not contact our clinic in regards to this due to the fact that she states this is normal because this is what happened with her youngins . Patient and I discussed avoiding epidural injections at this time due to this situation. She also made mention of her previous diagnosis of viral meningitis. Patient states that this was many years ago. She rates her pain a 6 out of 10 today mostly in her low back and legs. We did discuss her MRI of her cervical spine which was negative. Patient states that she has nerve damage in her back. ROS General: no recent weight change, no fever, no sleep disturbances Respiratory: no cough, no shortness of air, no recurring pulmonary infections Cardiovascular/Peripheral Vascular: No chest pain, No palpitations, no edema, no shortness of breath. Gastrointestinal: no new onset incontinence, normal bowel movements reported Genitourinary: no new onset incontinence Musculoskeletal: Back pain, leg pain, SI joint pain Psychiatric: normal mood/ affect, Neurological: [denies new onset weakness in extremities], [denies new onset balance issues] Objective:: Physical Exam General: Alert and oriented x3, no acute distress, pleasant and cooperative, [on room air] Lungs: Resps E/U, Symmetrical chest expansion, Eyes: PERRL Musculoskeletal: Flexion and extension of lumbar spine somewhat guarded secondary to pain, deep tendon reflexes normal, strength in upper and lower extremities [5/5], normal gait noted, positive SI joint compression test, Hermitage's test and Leo's test positive on the left side Neurological: speech clear, 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 Patient's been instructed to call the office if she has any issues prior to her next appointment. Dr. Ramon has reviewed this note and agrees with this plan of care. This note was dictated using voice recognition software and may contain errors or omissions [facility] History I have reviewed the patient's past medical history: Yes Medical History: Reports:: Anxiety, Depression, Gastroesophageal Reflux Disease(GERD), Heart Murmur, Kidney Stones Denies:: Cancer, Diabetes Mellitus Type 1, Diabetes Mellitus Type 2, Internal Pacemaker, MRSA, Seizures *Have you ever received a pneumonia vaccine?: Yes *Have you received a flu vaccine this season?: Yes Other Medical History: Reports: Other. Denies: Blood Transfusion Reaction Laterality Cases: Bilateral: Other Other Surgeries: Yes: BSO, Colonoscopy, Hernia Repair, Tubal Ligation. No: , Pacemaker Amputation: No Fractures: Yes - *Social History Smoking Status: Current every day smoker Tobacco Type: cigarettes # Packs/Day (cigarettes): 1 Alcohol Intake: never Substance Use Type: denies use *Occupational Status:: other Housing: house Household Members: significant other, family *Travel in the last 8 weeks: None - Psychiatric History Pschychiatric History:: Reports:: Anxiety, Depression Family Hx:: Diabetes, Coronary Artery Disease, Heart Attack, Hypertension, Cancer, Kidney Disease, Thyroid Disorder, Stroke, Asthma [employer] history: Spontaneous
== END ==
PROVIDERS: PCP Emergency Medicine; Visit Provider Clinical Nurse Specialist Family Health
DX: M46.1 Sacroiliitis, not elsewhere classified (principal); M54.9 Dorsalgia, unspecified
CPT/HCPCS: 99212

== ENCOUNTER 2019-08-07 14:48 | Day surgery (SDC) | payer OTHER, SELFPAY ==
[2019-08-07 15:29] VITALS: BP 134/74; PULSE 59; RESP 18; TEMP 36.7; O2SAT 99; BMI 29.0
--- NOTE | 2019-08-07 15:51 | HMH.PMPROC ---
- Procedure Date: 08/07/19 Time: 15:51 Anesthesiologist:: Smione Ramon MD Complications:: None Pre-procedure Diagnosis:: Sacroiliitis Post-procedure Diagnosis:: Same Indications for Procedure:: This patient is a pleasant 33-year-old white female who we are treating for left-sided hip pain. She is tender over the left SI joint. She has a positive Leo's test on left side. She has a positive Omid test on left side. She has a positive SI joint compression test. We will do a left SI joint injection under fluoroscopy to help her with her pain symptoms. Procedure Details:: Left SI joint injection under fluoroscopy Informed consent was obtained and the risks and benefits of the procedure was explained to the patient. Patient was taken to the procedure room. Patient was placed prone on the procedure table. The left hip was prepped using ChloraPrep. The skin and subcutaneous tissues were anesthetized using lidocaine. I placed a 22-gauge spinal needle into the inferior aspect of the left SI joint. Needle placement was confirmed with dye. After this we injected 5 mL bupivacaine 0.25% and Depo-Medrol 40 mg into the left SI joint. The patient tolerated the procedure well with no complication. Plan and Disposition:: Follow-up with her in 2 weeks. Will reevaluate her symptoms at that time.
[2019-08-07 15:58] VITALS: BP 119/75; BP 120/80; PULSE 81; PULSE 82; RESP 18; O2SAT 98
[2019-08-07 16:00] VITALS: BP 120/71; PULSE 73; RESP 18; O2SAT 97
== END 2019-08-07 16:00 | disposition home or self-care (01) ==
LOC: SC.PAINP 14:49
PROVIDERS: PCP Emergency Medicine; Visit Provider Anesthesiology
DX: M46.1 Sacroiliitis, not elsewhere classified (principal); F41.9 Anxiety disorder, unspecified; Z72.0 Tobacco use; Z87.448 Personal history of other diseases of urinary system; G43.909 Migraine, unspecified, not intractable, without status migrainosus; Z88.2 Allergy status to sulfonamides; Z88.8 Allergy status to other drugs, medicaments and biological substances; Z79.899 Other long term (current) drug therapy
CPT/HCPCS: 27096; G0260; J1040; Q9966

== ENCOUNTER → 2019-09-22 15:23 | Outpatient (CLI) | payer OTHER, SELFPAY ==
[2019-09-22 16:05] LABS: Basophils # 0.1 K/mm3 (0-0.2); Basophils % 0.4 % (0.1-2.0); Eosinophils # 0.2 K/mm3 (0.0-0.4); Eosinophils % 1.2 % (0.1-12.0); Hematocrit 39.5 % (37.0-47.0); Hemoglobin 13.6 g/dL (12.2-16.2); Lymphocytes # 3.6 K/mm3 (0.7-4.5); Lymphocytes % 28.8 % (10-50); Mean Corpuscular HGB Conc 34.3 g/dL (31.8-35.4); Mean Corpuscular Hemoglobin 33.3 pg (27.0-31.2); Mean Corpuscular Volume 97.2 fl (81-99); Mean Platelet Volume 10.3 fl (7.4-10.4); Monocytes # 0.8 K/mm3 (0.1-1.0); Neutrophils # 7.9 K/mm3 (1.8-7.8); Neutrophils % 63.5 % (37.0-80.0); Platelet Count 228 K/mm3 (142-424); Red Blood Count 4.07 M/mm3 (4.20-5.40); Red Cell Distribution Width 13.5 % (11.5-17.5); White Blood Count 12.4 K/mm3 (4.8-10.8)
[2019-09-22 16:16] LABS: Alanine Aminotransferase 18 U/L (12-78); Albumin Level 3.9 g/dl (3.5-5.0); Albumin/Globulin Ratio 1.2 (1.1-1.8); Alkaline Phosphatase 99 U/L (38-126); Aspartate Amino Transferase 20 U/L (14-36); Bilirubin,Total 0.3 mg/dl (0.2-1.3); Blood Urea Nitrogen 11 mg/dl (7-17); Calcium 9.2 mg/dl (8.4-10.2); Carbon Dioxide 20 mmol/L (22.0-30.0); Chloride 106 mmol/L (98-107); Chol/HDL Ratio 6.9 (1-3.5); Cholesterol 192 mg/dl (140-200); Estimated Glomerular Filt Rate 97 ml/min (>60); GFR (African American) 117 ML/MIN (>60); Globulin 3.3 g/dL (1.3-3.2); Glucose 96 mg/dl (74-100); HDL Cholesterol 28 mg/dl (40-60); Sodium 137 mmol/L (136-145); Total Protein,Serum 7.2 g/dl (6.3-8.2); Triglycerides 376 mg/dl (30-150); VLDL Cholesterol 75 mg/dL (0-40)
[2019-09-22 16:28] LABS: Direct LDL Cholesterol 119.17 mg/dL (100-129)
[2019-09-22 16:36] LABS: 25-OH Vitamin D, Total 33.6 ng/mL (30-100)
[2019-09-22 16:48] LABS: Thyroid Stimulating Hormone 2.51 uIU/mL (0.465-4.68)
== END ==
PROVIDERS: Visit Provider Emergency Medicine
DX: R68.89 Other general symptoms and signs (principal); E66.9 Obesity, unspecified; E55.9 Vitamin D deficiency, unspecified
CPT/HCPCS: 80053; 80061; 82306; 84439; 84443; 85025

== ENCOUNTER 2020-01-06 17:22 | Emergency (ER) | payer OTHER, SELFPAY ==
[2020-01-06 17:28] VITALS: BP 132/87; PULSE 86; RESP 19; TEMP 36.7; O2SAT 99; BMI 28.7
--- NOTE | 2020-01-06 17:30 | HMH.EDUTC ---
[facility] [place] Clinical Impression: Pleurisy Acute bronchitis Qualifiers: Bronchitis organism: unspecified organism Qualified Code(s): J20.9 - Acute bronchitis, unspecified Disposition: Home, Self-Care Condition on Discharge: Good Instructions: DI for Acute Bronchitis Additional Instructions: Drink plenty of fluids. Take tylenol for pain or fever. Return if you begin to have difficulty breathing. Follow up with your regular doctor. GO TO THE ER FOR ANY WORSENING SYMPTOMS Don't start the oral steroids until tomorrow, since you had the shot here today. Prescriptions: Brompheniramine/Pseudoephed/Dm [Bromfed Dm Cough Syrup] 5 ml PO Q6HP PRN #240 syrup PRN Reason: Cough Transmission Status: Received by [facility] methylPREDNISolone [Medrol] 4 mg PO DIRECTED 6 Days #21 tab.ds.pk Transmission Status: Received by [facility] Azithromycin [Z-Alphonse 250mg Tab*] 250 mg PO UD DOSE PK #6 tab Transmission Status: Received by [facility] Referrals: Julian Garland MD [Primary Care Provider] - Time of Disposition: 17:47 Medical Decision Making - Medical Records Medical records reviewed: No: I reviewed the patient's medical records. - Stuart Inquiry Pt receiving controlled substance: No Vital Signs: 01/06/20 17:28 01/06/20 17:52 Temperature 98.1 F 98.1 F Temperature Source Oral Oral Pulse Rate 86 Pulse Rate [Left Brachial] 86 Respiratory Rate 19 19 Blood Pressure 132/87 Blood Pressure [Right Arm] 132/87 Blood Pressure Mean [Right Arm] 102 Blood Pressure Source Automatic Cuff Blood Pressure Source [Right Arm] Automatic Cuff Blood Pressure Position Sitting Blood Pressure Position [Right Arm] Sitting 02 Sat by Pulse Oximetry 99 Oxygen Delivery Method Room Air Room Air Orders (Tests/Meds): ED MEDICATIONS Discontinued Medications Generic Name Dose Route Start Last Admin Trade Name Freq PRN Reason Stop Dose Admin Ceftriaxone Sodium 1 gm 01/06/20 17:37 01/06/20 17:46 Ceftriaxone 1gm Vial IM 01/06/20 17:38 1 gm ONCE ONE Administration Protocol Lidocaine HCl 0 ml 01/06/20 17:37 01/06/20 17:46 Lidocaine 1% 5ml Pf Vial IM 01/06/20 17:38 2.1 ml ONCE ONE Administration Methylprednisolone Sodium Succinate 125 mg 01/06/20 17:37 01/06/20 17:46 Methylprednisolone Sod Succ 125mg Vial IM 01/06/20 17:38 125 mg ONCE ONE Administration [facility] [place] - General Stated complaint: possible bronchitis Time Seen by Provider: 01/06/20 17:30 - History of Present Illness Provider Complaint: She states that for the past week she has had cough and chest congestion. She denies any fever or chills. She is having pleuritic type chest pain. - Related Data Previous Rx's Medication Instructions Recorded fluticasone propionate 50 1 mcg INTRANASAL NEEDED PRN 08/03/19 mcg/actuation nasal #18.2 ml spray,suspension alprazolam 0.5 mg tablet 0.5 mg PO BID #60 tab 11/23/19 gabapentin 600 mg tablet 600 mg PO TID #90 tab 11/23/19 nicotine 21 mg/24 hr daily 1 patch TRANSDERMA DAILY #28 each 11/23/19 transdermal patch ibuprofen 800 mg tablet See Rx Instructions .ROUTE 12/24/19 .COMPLEX #60 tab phentermine 37.5 mg capsule 37.5 mg PO DAILY #30 cap 12/25/19 Azithromycin [Z-Alphonse 250mg Tab*] 250 mg PO UD DOSE PK #6 tab 01/06/20 Brompheniramine/Pseudoephed/Dm 5 ml PO Q6HP PRN #240 syrup 01/06/20 [Bromfed Dm Cough Syrup] methylPREDNISolone [Medrol] 4 mg PO DIRECTED 6 Days #21 01/06/20 tab.ds.pk Allergies Allergy/AdvReac Type Severity Reaction Status Date / Time hydrocodone [HYDROCODONE] Allergy Unknown Unknown Verified 12/25/19 08:46 allergy reaction sulfamethoxazole Allergy Unknown Unknown Verified 12/25/19 08:46 [From BACTRIM] allergy reaction tramadol [TRAMADOL] Allergy Unknown Unknown Verified 12/25/19 08:46 allergy reaction trimethoprim [From BACTRIM] Allergy Unknown Unknown Verified
[2020-01-06 17:52] VITALS: BP 132/87; PULSE 86; RESP 19; TEMP 36.7; O2SAT 99
== END 2020-01-06 17:58 | disposition home or self-care (01) ==
PROVIDERS: Emergency Provider Nurse Practitioner Family; PCP Emergency Medicine
DX: R09.1 Pleurisy (principal); J20.9 Acute bronchitis, unspecified; F41.8 Other specified anxiety disorders; K21.9 Gastro-esophageal reflux disease without esophagitis; F17.210 Nicotine dependence, cigarettes, uncomplicated; Z88.2 Allergy status to sulfonamides; Z88.5 Allergy status to narcotic agent
CPT/HCPCS: 96372; 99201

== ENCOUNTER 2020-02-06 01:40 | Emergency (ER) | payer OTHER, SELFPAY ==
[2020-02-06 01:54] VITALS: BP 135/75; PULSE 106; RESP 14; TEMP 36.4; O2SAT 100; BMI 25.2
--- NOTE | 2020-02-06 02:04 | CT_ITS ---
PROCEDURE: CT ABDOMEN PELVIS W CON CLINICAL INDICATION: abd pain epigastric pain, nausea and vomiting COMPARISON: CT CT ABDOMEN PELVIS WO CON from 01/14/2019 TECHNIQUE: IV Contrast: 75ML OPTIRAY 350 Oral Contrast none given Axial images obtained with sagittal and coronal reformats. All CT scans at the facility use one or more dose reduction, viz: automated exposure control, ma/kV adjustment per patient size (including targeted exams where dose is matched to indication, i.e. head), or iterative reconstruction technique. FINDINGS: Lower thorax: No acute finding ABDOMEN: Liver: No masses or biliary dilatation. Gallbladder: Nondistended. No radio opaque stones. Pancreas: No masses or peripancreatic fluid collections. Spleen: unremarkable Adrenals: unremarkable Kidneys/ureters: Normal in size and show symmetrical function. There are few punctate calcifications in both kidneys in a calyceal distribution and review of the previous noncontrast CT scan abdomen and pelvis 01/14/2019 showed calcifications and calices typical of medullary sponge kidney. ABDOMEN & PELVIS: Stomach bowel: The stomach appears grossly normal and nondistended but I would doubt gastric wall thickening, the duodenal sweep and small bowel appear normal. There is moderately large amount stool and gas seen throughout the colon. The appendix is normal and partially air-filled. Peritoneum: No abnormal fluid collections. No obvious inflammatory changes. No free air. Lymph nodes: No enlarged lymph nodes apparent. Vasculature: No evidence of abdominal aortic aneurysm. No retroperitoneal hemorrhage evident. Bones: No acute fracture PELVIS: Reproductive: unremarkable the uterus is normal in size and in the midline showing normal enhancement. Bladder: Urinary bladder is partially decompressed which could account for the apparent diffuse bladder wall thickening but I suspect that wall thickening is more likely due to cystitis. There is no free fluid in the pelvis. Appendix: Unremarkable. No distention or periappendiceal phlegmonous change. IMPRESSION: No definite acute abdominal or pelvic pathology identified, probable mild bilateral medullary sponge kidney with no evidence of struck of uropathy. Prominent diffuse bladder wall thickening suggesting underlying cystitis Dictated by: Dr. Varinder Wright MD 02/06/2020 09:09 Dr. Varinder Wright MD in [place] 02/06/2020 09:09
[2020-02-06 02:17] LABS: Alanine Aminotransferase 13 U/L (12-78); Albumin Level 4.4 g/dl (3.5-5.0); Albumin/Globulin Ratio 1.3 (1.1-1.8); Alkaline Phosphatase 90 U/L (38-126); Amylase 86 U/L (30-110); Anion Gap 10.9 mEq/L (5-15); Aspartate Amino Transferase 20 U/L (14-36); Basophils # 0.1 K/mm3 (0-0.2); Basophils % 0.7 % (0.1-2.0); Bilirubin,Total 0.4 mg/dl (0.2-1.3); Blood Urea Nitrogen 8 mg/dl (7-17); Carbon Dioxide 29 mmol/L (22.0-30.0); Chloride 101 mmol/L (98-107); Creatinine Clearance Estimated 88 mL/min (50-200); Eosinophils # 0.1 K/mm3 (0.0-0.4); Eosinophils % 1.1 % (0.1-12.0); Estimated Glomerular Filt Rate 72 ml/min (>60); GFR (African American) 87 ML/MIN (>60); Globulin 3.5 g/dL (1.3-3.2); Glucose 123 mg/dl (74-100); Hemoglobin 14.2 g/dL (12.2-16.2); Lipase 148 U/L (23-300); Lymphocytes # 4.4 K/mm3 (0.7-4.5); Lymphocytes % 38.6 % (10-50); Mean Corpuscular Hemoglobin 31.4 pg (27.0-31.2); Mean Platelet Volume 7.8 fl (7.4-10.4); Monocytes # 0.6 K/mm3 (0.1-1.0); Monocytes % 4.9 % (1.7-9.3); Neutrophils # 6.3 K/mm3 (1.8-7.8); Neutrophils % 54.6 % (37.0-80.0); Platelet Count 284 K/mm3 (142-424); Red Blood Count 4.52 M/mm3 (4.20-5.40); Red Cell Distribution Width 13.4 % (11.5-17.5); Sodium 138 mmol/L (136-145); Total Protein,Serum 7.9 g/dl (6.3-8.2); White Blood Count 11.5 K/mm3 (4.8-10.8)
[2020-02-06 02:23] LABS: C-Reactive Protein 15.6 mg/L (0-4)
[2020-02-06 02:29] LABS: Potassium 2.9 mmoL/L (3.5-5.1)
[2020-02-06 02:31] LABS: Microscopic, Urine URINE MICROSCOPIC (MICROSCOPIC)
[2020-02-06 02:33] LABS: Appearance,Urine SL CLOUDY (Clear); Bilirubin,Urine Negative (Negative); Blood, Urine TRACE-I (Negative); Color,Urine YELLOW (Yellow); Glucose,Urine (UA) Negative (Negative); Ketones,Urine Negative (Negative); Leukocyte Esterase,Urine Negative (Negative); Nitrate,Urine Negative (Negative); Protein,Urine Negative (Negative); Specific Gravity, Urine 1.025 (1.005-1.030); Urobilinogen,Urine 0.2 EU/dl (0.2)
[2020-02-06 02:38] LABS: Amorphous Sediment,Urine Trace /lpf
[2020-02-06 02:42] VITALS: BP 104/42; PULSE 79; O2SAT 100
[2020-02-06 02:54] LABS: Erythrocyte Sedimentation Rate 22 mm/hr (0-20)
--- NOTE | 2020-02-06 03:27 | HMH.EDNVD ---
ED Disposition Clinical Impression: Hypokalemia Abdominal pain Qualifiers: Abdominal location: epigastric Qualified Code(s): R10.13 - Epigastric pain Disposition: Home, Self-Care Condition on Discharge: Good Instructions: DI for Acute Abdominal Pain Additional Instructions: see pcp saturday for follow up Referrals: Julian Garland MD [Primary Care Provider] - - Critical Care Critical Care Time: No Attestation: On 02/06/20, the high probability of a clinically significant, sudden or life threatening deterioration of the following system(s) required my full and direct attention, intervention and personal management. The time I documented below is in addition to time spent performing reported procedures but includes the following listed in this critical care notation. Medical Decision Making - Medical Records Medical records reviewed: Yes: I reviewed the patient's medical records. - Stuart Inquiry Pt receiving controlled substance: No Vital Signs: 02/06/20 01:54 02/06/20 02:42 Temperature 97.6 F Temperature Source Oral Pulse Rate [Right Brachial] 106 H 79 Respiratory Rate 14 Blood Pressure [Right Arm] 135/75 104/42 L Blood Pressure Mean [Right Arm] 95 62 02 Sat by Pulse Oximetry 100 100 Oxygen Delivery Method Room Air Room Air - Lab Data Lab results reviewed: Yes: I reviewed the patient's lab results. Lab Results 02/06/20 01:45: Urine Color Yellow, Urine Appearance Sl cloudy, Urine pH 6.0, Ur Specific [place] 1.025, Urine Protein Negative, Urine Glucose (UA) Negative, Urine Ketones Negative, Urine Blood Trace-i, Urine Nitrate Negative, Urine Bilirubin Negative, Urine Urobilinogen 0.2, Ur Leukocyte Esterase Negative, Urine RBC 5-10, Urine WBC 5-10, Ur Squamous Epith Cells 5-10, Amorphous Sediment Trace 02/06/20 01:55: WBC 11.5 H, RBC 4.52, Hgb 14.2, Hct 43.0, MCV 95.0, MCH 31.4 H, MCHC 33.0, RDW 13.4, Plt Count 284, MPV 7.8, Neut % (Auto) 54.6, Lymph % (Auto) 38.6, Tyrrell % (Auto) 4.9, Eos % (Auto) 1.1, Baso % (Auto) 0.7, Neut # (Auto) 6.3, Lymph # (Auto) 4.4, Tyrrell # (Auto) 0.6, Eos # (Auto) 0.1, Baso # (Auto) 0.1, ESR 22 H 02/06/20 01:55: Sodium 138, Potassium 2.9 L*, Chloride 101, Carbon Dioxide 29, Anion Gap 10.9, BUN 8, Creatinine 0.90, Estimated Creat Clear 88, Estimated GFR 72, Est GFR ( Amer) 87, Glucose 123 H, Calcium 10.0, Total Bilirubin 0.4, AST 20, ALT 13, Alkaline Phosphatase 90, C-Reactive Protein 15.6 H, Total Protein 7.9, Albumin 4.4, Globulin 3.5 H, Albumin/Globulin Ratio 1.3, Amylase 86, Lipase 148 Result diagrams: 02/06/20 01:55 02/06/20 01:55 Orders (Tests/Meds): ED MEDICATIONS Generic Name Dose Route Start Last Admin Trade Name Freq PRN Reason Stop Dose Admin Sodium Chloride 1,000 mls @ 999 mls/hr 02/06/20 02:15 02/06/20 02:11 Sod Chlor 0.9% 1000ml Bag IV 02/06/20 03:15 999 mls/hr .Q1H1M CASSANDRA Administration Sodium Chloride 8 ml 02/06/20 02:05 Sodium Chloride 0.9% 10ml Vial IV 03/07/20 02:04 NEEDED PRN dilute pepcid Discontinued Medications Generic Name Dose Route Start Last Admin Trade Name Freq PRN Reason Stop Dose Admin Famotidine 20 mg 02/06/20 02:05 02/06/20 02:11 Famotidine 20mg/2ml Vial IV 02/06/20 02:06 20 mg ONCE ONE Administration Iopamidol 75 ml 02/06/20 02:41 02/06/20 02:42 Iopamidol-370 (76%);100ml Bottle IV 02/06/20 02:42 75 ml ONCE ONE Administration Ketorolac Tromethamine 30 mg 02/06/20 02:05 02/06/20 02:12 Ketorolac 30mg/Ml Vial IV 02/06/20 02:06 30 mg ONCE ONE Administration Metoclopramide HCl 10 mg 02/06/20 02:05 02/06/20 02:27 Metoclopramide Hcl 10mg/2ml Vial IM 02/06/20 02:06 Not Given ONCE ONE Metoclopramide HCl 10 mg 02/06/20 02:12 02/06/20 02:13 Metoclopramide Hcl 10mg/2ml Vial IVP 02/06/20 02:13 10 mg ONCE ONE Administration Ondansetron HCl 4 mg 02/06/20 02:11 02/06/20 02:12 Ondansetron 4mg/2ml Vial IV 02/06/20 02:12 4 mg ONCE ONE Ad
[2020-02-06 03:39] LABS: Procalcitonin 0.051 ng/mL (0.0-2.0)
[2020-02-06 03:40] VITALS: BP 96/60; PULSE 82; RESP 15; TEMP 36.6; O2SAT 97
== END 2020-02-06 03:47 | disposition home or self-care (01) ==
PROVIDERS: Emergency Provider Emergency Medicine; PCP Emergency Medicine
DX: E87.6 Hypokalemia (principal); R10.13 Epigastric pain; F41.8 Other specified anxiety disorders; K21.9 Gastro-esophageal reflux disease without esophagitis; Z87.442 Personal history of urinary calculi; Z79.899 Other long term (current) drug therapy; F17.210 Nicotine dependence, cigarettes, uncomplicated
CPT/HCPCS: 74177; 80053; 81001; 82150; 83690; 84145; 85025; 85651; 86140; 96365; 96375; 99283; J2405; Q9967

== ENCOUNTER → 2020-02-22 17:06 | Outpatient (CLI) | payer OTHER, SELFPAY ==
[2020-02-22 18:12] LABS: Anion Gap 15.1 mEq/L (5-15); Blood Urea Nitrogen 10 mg/dl (7-17); Calcium 9.9 mg/dl (8.4-10.2); Carbon Dioxide 25 mmol/L (22.0-30.0); Chloride 103 mmol/L (98-107); Estimated Glomerular Filt Rate 72 ml/min (>60); GFR (African American) 87 ML/MIN (>60); Glucose 84 mg/dl (74-100); Potassium 4.1 mmoL/L (3.5-5.1); Sodium 139 mmol/L (136-145)
[2020-02-24 10:20] LABS: FSH 10.3 mIU/mL (.); LH 8.3 mIU/mL (.); Progesterone 0.4 ng/mL (.)
[2020-02-26 06:14] LABS: Estrogen 124 pg/mL (.)
== END ==
PROVIDERS: Visit Provider Emergency Medicine
DX: F41.9 Anxiety disorder, unspecified (principal); R53.83 Other fatigue
CPT/HCPCS: 80048; 82672; 83001; 83002; 84144

== ENCOUNTER 2020-04-16 20:09 | Emergency (ER) | payer OTHER, SELFPAY ==
[2020-04-16 20:10] VITALS: BP 102/60; PULSE 73; RESP 20; TEMP 36.2; O2SAT 98; BMI 28.9
--- NOTE | 2020-04-16 20:27 | HMH.EDUTC ---
[facility] [place] Clinical Impression: Nausea vomiting and diarrhea Disposition: Home, Self-Care Condition on Discharge: Good Instructions: Diarrhea, DI for Nausea -- Adult, Nausea and Vomiting-Adult Additional Instructions: ? Avoid fruit juices, as these do not replace minerals and can actually increase diarrhea. ? Children and adults can use sports drinks to replenish electrolytes. Younger children and infants should use products formulated for children, like oral rehydration solutions. ? Eat food in small amounts and let your stomach recover. ? Get lots of rest. You may feel tired or weak. ? No greasy or fried foods for the next 24-48 hours BRAT diet Bananas Rice Apples and Berkley ? Make sure to drink plenty of liquids ? Return if needed ? Straight to ER if any life threatening symptoms Take Phenergan as prescribed ? You was given an outpatient order for diarrhea panel, please collect specimen and bring back to outpatient lab then call back to the [facility] or follow up with family doctor for results ? Follow up with family doctor in the next 48-72 hours if no improvement or any worsening of symptoms Prescriptions: Promethazine HCl [Phenergan 12.5mg tablet] 12.5 mg PO Q6H PRN #6 tab PRN Reason: Vomiting Transmission Status: Received by [facility] Referrals: Julian Garland MD [Primary Care Provider] - As needed Time of Disposition: 21:12 Medical Decision Making - Stuart Inquiry Pt receiving controlled substance: No Stuart was queried for this patient: No Vital Signs: 04/16/20 20:10 04/16/20 21:09 Temperature 97.1 F L Temperature Source Oral Pulse Rate [Left Brachial] 73 Respiratory Rate 20 Blood Pressure [Left Arm] 102/60 L 121/70 Blood Pressure Mean [Left Arm] 74 87 Blood Pressure Source [Left Arm] Automatic Cuff Automatic Cuff Blood Pressure Position [Left Arm] Sitting Sitting 02 Sat by Pulse Oximetry 98 Oxygen Delivery Method Room Air - Lab Data Lab results reviewed: Yes: I reviewed the patient's lab results. Lab Results 04/16/20 20:27: Strep Scn Rapid Clinic Negative Orders (Tests/Meds): ED MEDICATIONS Discontinued Medications Generic Name Dose Route Start Last Admin Trade Name Freq PRN Reason Stop Dose Admin Promethazine HCl 12.5 mg 04/16/20 20:42 04/16/20 20:53 Promethazine Hcl 12.5mg Tablet PO 04/16/20 20:43 12.5 mg ONCE ONE Administration ORDERS Category Date Time Status Strep Screen Confirmation Stat Micro 04/16/20 20:27 Received Medical Decision Narrative: Discussed with patient and she declined COVID test States that she has not been around anyone that has had symptoms or tested positive for COVID Spoke with pharmacy about medications Patient states that medication helped with nausea and vomiting [facility] [place] - General Stated complaint: v/d Time Seen by Provider: 04/16/20 20:27 Mode of Arrival: Ambulatory Source of Information: Patient Limitations: No Limitations Description of Symptoms (Recalled from Triage Doc. by RN): PATIENT C/O NAUSEA, VOMITING AND WEAKNESS SINCE APPROX 0330 THIS AM. DAUGHTER WAS DIAGNOSED WITH STREP YESTERDAY HEENT Symptoms (Recalled from RN notes): No Resp Symptoms (Recalled from RN notes): No Skin Symptoms (Recalled from RN notes): No MS Symptoms (Recalled from RN notes): No Functional Status (Recalled from RN notes): WNL - History of Present Illness Provider Complaint: Patient state that yesterday her daughter was dx with strep throat State that her throat is feeling a little scratchy but she started having vomiting and diarrhea around 3am this morning and feeling like she has a Stomach bug States that she had a zofran at home and took it this morning but it didnt help much with her nausea and vomiting so she came in this evening to try to get something to help her with her vomiting - Related Data Previous Rx's Medication Instructions Recorded fluticasone propionate 50 1 mcg INTRANASAL NEEDED PRN 08/03/19 m
[2020-04-16 20:58] LABS: UTC Strep Screen (Rapid) Negative (Negative)
[2020-04-16 21:09] VITALS: BP 121/70
[2020-04-16 21:13] VITALS: BP 121/70; PULSE 73; RESP 20; TEMP 36.2; O2SAT 98
== END 2020-04-16 21:17 | disposition home or self-care (01) ==
PROVIDERS: Emergency Provider Nurse Practitioner; PCP Emergency Medicine
DX: R11.2 Nausea with vomiting, unspecified (principal); R19.7 Diarrhea, unspecified; F41.8 Other specified anxiety disorders; K21.9 Gastro-esophageal reflux disease without esophagitis; R01.1 Cardiac murmur, unspecified; F17.210 Nicotine dependence, cigarettes, uncomplicated; Z87.442 Personal history of urinary calculi; Z88.2 Allergy status to sulfonamides; Z88.5 Allergy status to narcotic agent
CPT/HCPCS: 87880; 99202; G0463

== ENCOUNTER → 2020-04-20 14:40 | Outpatient (CLI) | payer OTHER, SELFPAY ==
[2020-04-20 14:42] LABS: Adenovirus F 40/41, stool Not Detected (NotDetected); Astrovirus Not Detected (NotDetected); Campylobacter Not Detected (NotDetected); Clostridium Difficile A/B, PCR Not Detected (NotDetected); Cryptosporidium Not Detected (NotDetected); Cyclospora Cayetanesis Not Detected (NotDetected); Entamoeba histolytica Not Detected (NotDetected); Enteroaggregative E coli Not Detected (NotDetected); Enteropathogenic E coli Not Detected (NotDetected); Enterotoxigenic E coli Not Detected (NotDetected); Giardia lamblia Not Detected (NotDetected); Norovirus Not Detected (NotDetected); Plesimonas Shigalloides, PCR Not Detected (NotDetected); Rotavirus A Not Detected (NotDetected); Salmonella, PCR Not Detected (NotDetected); Sapovirus Not Detected (NotDetected); Shiga-like toxin E coli Not Detected (NotDetected); Shigella Enterovasive E coli Not Detected (NotDetected); Vibrio Cholerae Not Detected (NotDetected); Vibrio, PCR Not Detected (NotDetected); Yersinia Entercolitica, PCR Not Detected (NotDetected)
== END ==
PROVIDERS: Visit Provider Nurse Practitioner
DX: R19.7 Diarrhea, unspecified (principal)
CPT/HCPCS: 87507

== ENCOUNTER 2020-04-21 22:13 | Emergency (ER) | payer OTHER, SELFPAY ==
[2020-04-21 22:28] VITALS: BP 150/83; PULSE 107; RESP 16; TEMP 36.6; O2SAT 98; BMI 28.9
[2020-04-21 22:30] VITALS: BP 141/80; PULSE 101; RESP 17; O2SAT 99
--- NOTE | 2020-04-21 22:45 | HMH.EDGENADL ---
ED Disposition Clinical Impression: Diverticulosis Ovarian cyst Qualifiers: Laterality: left Qualified Code(s): N83.202 - Unspecified ovarian cyst, left side Disposition: Home, Self-Care Condition on Discharge: Fair Instructions: DI for Ovarian Cyst, DI for Acute Abdominal Pain Additional Instructions: You have been evaluated for nausea and vomiting. Possibly due to ovarian cyst or diverticulosis. Please take nausea medication as needed. Take anti-inflammatories. Follow-up with your primary care doctor and gastroenterology. Prescriptions: Promethazine HCl [Phenergan 12.5mg tablet] 12.5 mg PO Q6H PRN #6 tab PRN Reason: Nausea And Vomiting Transmission Status: Pending to [facility] Referrals: Julian Garland MD [Primary Care Provider] - Time of Disposition: : - Critical Care Critical Care Time: No Attestation: On 04/21/20, the high probability of a clinically significant, sudden or life threatening deterioration of the following system(s) required my full and direct attention, intervention and personal management. The time I documented below is in addition to time spent performing reported procedures but includes the following listed in this critical care notation. Medical Decision Making - Medical Records Medical records reviewed: Yes: I reviewed the patient's medical records. - Stuart Inquiry Pt receiving controlled substance: No Vital Signs: 04/21/20 22:28 04/21/20 22:30 04/21/20 23:00 Temperature 97.8 F Temperature Source Oral Pulse Rate [Right Brachial] 107 H 101 H 105 H Respiratory Rate 16 17 15 Blood Pressure [Right Arm] 150/83 H 141/80 H 142/89 H Blood Pressure Mean [Right Arm] 105 100 106 Blood Pressure Source [Right Arm] Automatic Cuff Automatic Cuff Automatic Cuff Blood Pressure Position [Right Arm] Sitting Supine Supine 02 Sat by Pulse Oximetry 98 99 98 Oxygen Delivery Method Room Air Room Air Room Air 04/21/20 23:30 04/22/20 00:01 Temperature Temperature Source Pulse Rate [Right Brachial] 98 H 75 Respiratory Rate 17 18 Blood Pressure [Right Arm] 137/80 131/72 Blood Pressure Mean [Right Arm] 99 91 Blood Pressure Source [Right Arm] Automatic Cuff Automatic Cuff Blood Pressure Position [Right Arm] Supine Sitting 02 Sat by Pulse Oximetry 98 98 Oxygen Delivery Method Room Air Room Air - Lab Data Lab Results 04/21/20 22:40: WBC 12.5 H, RBC 4.53, Hgb 14.6, Hct 42.5, MCV 93.9, MCH 32.3 H, MCHC 34.4, RDW 13.0, Plt Count 257, MPV 8.7, Neut % (Auto) 54.8, Lymph % (Auto) 37.3, [place] % (Auto) 5.7, Eos % (Auto) 1.5, Baso % (Auto) 0.8, Neut # (Auto) 6.9, Lymph # (Auto) 4.7 H, [place] # (Auto) 0.7, Eos # (Auto) 0.2, Baso # (Auto) 0.1 04/21/20 22:40: Sodium 141, Potassium 3.3 L, Chloride 105, Carbon Dioxide 26, Anion Gap 13.3, BUN 7, Creatinine 1.00, Estimated Creat Clear 91, Estimated GFR 64, Est GFR ( Amer) 77, Glucose 131 H, Calcium 10.1, Total Bilirubin 0.6, AST 29, ALT 25, Alkaline Phosphatase 86, Total Protein 8.2, Albumin 4.7, Globulin 3.5 H, Albumin/Globulin Ratio 1.3, Lipase 251 04/21/20 22:48: Serum HCG, Qual Negative 04/21/20 23:25: Lactate 1.0 Result diagrams: 04/21/20 22:40 04/21/20 22:40 Orders (Tests/Meds): ED MEDICATIONS Generic Name Dose Route Start Last Admin Trade Name Freq PRN Reason Stop Dose Admin Sodium Chloride 1,000 mls @ 999 mls/hr 04/21/20 22:30 04/21/20 22:51 Sod Chlor 0.9% 1000ml Bag IV 04/21/20 23:30 999 mls/hr .Q1H1M CASSANDRA Administration Sodium Chloride 8 ml 04/21/20 22:55 Sodium Chloride 0.9% 10ml Vial IV 05/21/20 22:54 NEEDED PRN dilute pepcid Discontinued Medications Generic Name Dose Route Start Last Admin Trade Name Freq PRN Reason Stop Dose Admin Diphenhydramine HCl 12.5 mg 04/22/20 00:05 04/22/20 00:30 Diphenhydramine 50mg/Ml Vial IV 04/22/20 00:06 12.5 mg ONCE ONE Administration Famotidine 40 mg 04/21/20 22:55 04/21/20 23:00 Famotidine 20mg/2ml Vial IV
[2020-04-21 22:59] LABS: Basophils # 0.1 K/mm3 (0-0.2); Basophils % 0.8 % (0.1-2.0); Chloride 105 mmol/L (98-107); Eosinophils # 0.2 K/mm3 (0.0-0.4); Eosinophils % 1.5 % (0.1-12.0); Hematocrit 42.5 % (37.0-47.0); Hemoglobin 14.6 g/dL (12.2-16.2); Lymphocytes # 4.7 K/mm3 (0.7-4.5); Lymphocytes % 37.3 % (10-50); Mean Corpuscular HGB Conc 34.4 g/dL (31.8-35.4); Mean Corpuscular Hemoglobin 32.3 pg (27.0-31.2); Mean Corpuscular Volume 93.9 fl (81-99); Mean Platelet Volume 8.7 fl (7.4-10.4); Monocytes # 0.7 K/mm3 (0.1-1.0); Monocytes % 5.7 % (1.7-9.3); Neutrophils # 6.9 K/mm3 (1.8-7.8); Neutrophils % 54.8 % (37.0-80.0); Platelet Count 257 K/mm3 (142-424); Potassium 3.3 mmoL/L (3.5-5.1); Red Blood Count 4.53 M/mm3 (4.20-5.40); Sodium 141 mmol/L (136-145); White Blood Count 12.5 K/mm3 (4.8-10.8)
[2020-04-21 23:00] VITALS: BP 142/89; PULSE 105; RESP 15; O2SAT 98
[2020-04-21 23:02] LABS: Alanine Aminotransferase 25 U/L (12-78); Albumin Level 4.7 g/dl (3.5-5.0); Albumin/Globulin Ratio 1.3 (1.1-1.8); Alkaline Phosphatase 86 U/L (38-126); Anion Gap 13.3 mEq/L (5-15); Aspartate Amino Transferase 29 U/L (14-36); Bilirubin,Total 0.6 mg/dl (0.2-1.3); Blood Urea Nitrogen 7 mg/dl (7-17); Calcium 10.1 mg/dl (8.4-10.2); Carbon Dioxide 26 mmol/L (22.0-30.0); Creatinine Clearance Estimated 91 mL/min (50-200); Estimated Glomerular Filt Rate 64 ml/min (>60); GFR (African American) 77 ML/MIN (>60); Globulin 3.5 g/dL (1.3-3.2); Glucose 131 mg/dl (74-100); Lipase 251 U/L (23-300); Total Protein,Serum 8.2 g/dl (6.3-8.2)
[2020-04-21 23:30] VITALS: BP 137/80; PULSE 98; RESP 17; O2SAT 98
[2020-04-21 23:52] LABS: HCG Qualitative, Serum Negative (Negative)
[2020-04-22 00:01] VITALS: BP 131/72; PULSE 75; RESP 18; O2SAT 98
--- NOTE | 2020-04-22 00:03 | CT_ITS ---
PROCEDURE: CT ABDOMEN PELVIS W CON CLINICAL INDICATION: abdominal pain COMPARISON: CT CT ABDOMEN PELVIS W CON from 02/06/2020 TECHNIQUE: IV Contrast: 75ML Isovue 370 Oral Contrast None Axial images obtained with sagittal and coronal reformats. All CT scans at the facility use one or more dose reduction, viz: automated exposure control, ma/kV adjustment per patient size (including targeted exams where dose is matched to indication, i.e. head), or iterative reconstruction technique. FINDINGS: LOWER THORAX: No acute finding ABDOMEN & PELVIS: Liver, spleen, adrenal glands, pancreas, and kidneys have an unremarkable appearance. No evidence of appendicitis. No intestinal obstruction or free air. No pelvic mass or abnormal fluid collection. There is a small 1.5 x 1 cm oval area of hyperdensity anterior to the sigmoid colon image 92 series 3 and may represent an area of epiploic appendagitis. There are few colonic diverticula but no evidence of diverticulitis. 1.3 cm left ovarian cyst slightly hyperdense and may be related to a hemorrhagic cyst. No acute bony findings. IMPRESSION: 1. Possible small focus of epiploic appendagitis anterior to the sigmoid colon 2. Small left ovarian cyst slightly hyperdense possibly due to hemorrhagic cyst. Dictated by: Balta Carcamo MD 04/22/2020 06:42 Balta Carcamo MD in [place] 04/22/2020 06:42
[2020-04-22 02:53] VITALS: BP 128/68; PULSE 78; RESP 16; TEMP 36.7; O2SAT 99
== END 2020-04-22 02:54 | disposition home or self-care (01) ==
PROVIDERS: Emergency Provider Emergency Medicine; PCP Emergency Medicine
DX: N83.202 Unspecified ovarian cyst, left side (principal); K57.90 Diverticulosis of intestine, part unspecified, without perforation or abscess without bleeding; F41.8 Other specified anxiety disorders; K21.9 Gastro-esophageal reflux disease without esophagitis; F17.210 Nicotine dependence, cigarettes, uncomplicated; Z88.2 Allergy status to sulfonamides; Z88.5 Allergy status to narcotic agent
CPT/HCPCS: 74177; 80053; 83605; 83690; 84703; 85025; 96365; 96375; 99284; Q9967

== ENCOUNTER 2020-04-22 23:10 | Emergency (ER) | payer OTHER, SELFPAY ==
[2020-04-23 00:07] VITALS: BP 139/80; PULSE 106; RESP 20; TEMP 36.6; O2SAT 98; BMI 28.9
[2020-04-23 00:59] LABS: Basophils # 0.1 K/mm3 (0-0.2); Basophils % 0.7 % (0.1-2.0); Eosinophils # 0.1 K/mm3 (0.0-0.4); Eosinophils % 1.2 % (0.1-12.0); Hematocrit 38.5 % (37.0-47.0); Lymphocytes # 4.3 K/mm3 (0.7-4.5); Lymphocytes % 37.2 % (10-50); Mean Corpuscular HGB Conc 33.7 g/dL (31.8-35.4); Mean Corpuscular Hemoglobin 31.7 pg (27.0-31.2); Mean Platelet Volume 8.5 fl (7.4-10.4); Monocytes # 0.7 K/mm3 (0.1-1.0); Monocytes % 6.1 % (1.7-9.3); Neutrophils # 6.3 K/mm3 (1.8-7.8); Neutrophils % 54.9 % (37.0-80.0); Platelet Count 228 K/mm3 (142-424); Red Cell Distribution Width 13.1 % (11.5-17.5); White Blood Count 11.5 K/mm3 (4.8-10.8)
--- NOTE | 2020-04-23 01:02 | HMH.EDNVD ---
ED Disposition Clinical Impression: Abdominal pain Qualifiers: Abdominal location: generalized Qualified Code(s): R10.84 - Generalized abdominal pain Disposition: Home, Self-Care Condition on Discharge: Good Instructions: DI for Acute Abdominal Pain Additional Instructions: call pcp saturday for follow up and urine culture results Prescriptions: ondansetron HCL [Zofran 4mg Tab] 4 mg PO TID #30 tab Transmission Status: Pending to [facility] Referrals: Julian Garland MD [Primary Care Provider] - - Critical Care Critical Care Time: No Attestation: On 04/22/20, the high probability of a clinically significant, sudden or life threatening deterioration of the following system(s) required my full and direct attention, intervention and personal management. The time I documented below is in addition to time spent performing reported procedures but includes the following listed in this critical care notation. Medical Decision Making - Medical Records Medical records reviewed: Yes: I reviewed the patient's medical records. - Stuart Inquiry Pt receiving controlled substance: No Vital Signs: 04/23/20 00:07 Temperature 97.8 F Temperature Source Oral Pulse Rate [Radial] 106 H Respiratory Rate 20 Blood Pressure [Right Arm] 139/80 Blood Pressure Mean [Right Arm] 99 Blood Pressure Source [Right Arm] Automatic Cuff 02 Sat by Pulse Oximetry 98 Oxygen Delivery Method Room Air - Lab Data Lab results reviewed: Yes: I reviewed the patient's lab results. Lab Results 04/23/20 00:45: WBC 11.5 H, RBC 4.10 L, Hgb 13.0, Hct 38.5, MCV 94.0, MCH 31.7 H, MCHC 33.7, RDW 13.1, Plt Count 228, MPV 8.5, Neut % (Auto) 54.9, Lymph % (Auto) 37.2, [place] % (Auto) 6.1, Eos % (Auto) 1.2, Baso % (Auto) 0.7, Neut # (Auto) 6.3, Lymph # (Auto) 4.3, [place] # (Auto) 0.7, Eos # (Auto) 0.1, Baso # (Auto) 0.1, ESR 16 04/23/20 00:45: Sodium 140, Potassium 3.1 L, Chloride 107, Carbon Dioxide 25, Anion Gap 11.1, BUN 4 L D, Creatinine 0.90, Estimated Creat Clear 101, Estimated GFR 72, Est GFR ( Amer) 87, Glucose 97, Calcium 9.0 D, Total Bilirubin 0.5, AST 27, ALT 21, Alkaline Phosphatase 66, C-Reactive Protein 4.4 H, Total Protein 7.4, Albumin 4.3, Globulin 3.1, Albumin/Globulin Ratio 1.4, Amylase 99, Lipase 209, Procalcitonin 0.031 Result diagrams: 04/23/20 00:45 04/23/20 00:45 Orders (Tests/Meds): ED MEDICATIONS Generic Name Dose Route Start Last Admin Trade Name Freq PRN Reason Stop Dose Admin Sodium Chloride 1,000 mls @ 999 mls/hr 04/23/20 00:30 04/23/20 00:57 Sod Chlor 0.9% 1000ml Bag IV 04/23/20 01:30 999 mls/hr .Q1H1M CASSANDRA Administration Sodium Chloride 8 ml 04/23/20 01:52 Sodium Chloride 0.9% 10ml Vial IV 05/23/20 01:51 NEEDED PRN dilute pepcid Discontinued Medications Generic Name Dose Route Start Last Admin Trade Name Freq PRN Reason Stop Dose Admin Famotidine 20 mg 04/23/20 01:52 Famotidine 20mg/2ml Vial IV 04/23/20 01:53 ONCE ONE Ketorolac Tromethamine 30 mg 04/23/20 00:54 04/23/20 00:56 Ketorolac 30mg/Ml Vial IV 04/23/20 00:55 30 mg ONCE ONE Administration Metoclopramide HCl 10 mg 04/23/20 01:52 Metoclopramide Hcl 10mg/2ml Vial IVP 04/23/20 01:53 ONCE ONE Ondansetron HCl 4 mg 04/23/20 00:20 04/23/20 00:56 Ondansetron 4mg/2ml Vial IV 04/23/20 00:21 4 mg ONCE ONE Administration Promethazine HCl 25 mg 04/23/20 01:51 Promethazine Hcl 25mg/Ml 1ml Vial IV 04/23/20 01:52 ONCE ONE Sodium Chloride 25 ml 04/23/20 01:51 Sodium Chloride 0.9% 25ml Bag IV 04/23/20 01:52 ONCE ONE ORDERS Category Date Time Status UA [Urinalysis and Microscopic] Stat Lab 04/23/20 01:47 Ordered Medical Decision Narrative: pt with prob ibs-c type issues and will need to see dr martin as follow up and pcp Nausea/Vomiting/Diarrhea HPI - General Chief complaint: Abdominal Pain Stated complaint: Stomach pain;nausea,vomiti
[2020-04-23 01:23] LABS: Alanine Aminotransferase 21 U/L (12-78); Albumin Level 4.3 g/dl (3.5-5.0); Albumin/Globulin Ratio 1.4 (1.1-1.8); Alkaline Phosphatase 66 U/L (38-126); Amylase 99 U/L (30-110); Anion Gap 11.1 mEq/L (5-15); Aspartate Amino Transferase 27 U/L (14-36); Bilirubin,Total 0.5 mg/dl (0.2-1.3); Blood Urea Nitrogen 4 mg/dl (7-17); Carbon Dioxide 25 mmol/L (22.0-30.0); Chloride 107 mmol/L (98-107); Creatinine Clearance Estimated 101 mL/min (50-200); Estimated Glomerular Filt Rate 72 ml/min (>60); GFR (African American) 87 ML/MIN (>60); Globulin 3.1 g/dL (1.3-3.2); Glucose 97 mg/dl (74-100); Lipase 209 U/L (23-300); Potassium 3.1 mmoL/L (3.5-5.1); Sodium 140 mmol/L (136-145); Total Protein,Serum 7.4 g/dl (6.3-8.2)
[2020-04-23 01:27] LABS: Erythrocyte Sedimentation Rate 16 mm/hr (0-20)
[2020-04-23 01:28] LABS: C-Reactive Protein 4.4 mg/L (0-4)
[2020-04-23 01:42] LABS: Procalcitonin 0.031 ng/mL (0.0-2.0)
[2020-04-23 02:12] LABS: Microscopic, Urine URINE MICROSCOPIC (MICROSCOPIC)
[2020-04-23 02:13] LABS: Appearance,Urine CLEAR (Clear); Bilirubin,Urine Negative (Negative); Blood, Urine Negative (Negative); Color,Urine YELLOW (Yellow); Glucose,Urine (UA) Negative (Negative); Ketones,Urine Negative (Negative); Leukocyte Esterase,Urine TRACE (Negative); Nitrate,Urine Negative (Negative); Protein,Urine Negative (Negative); Urobilinogen,Urine 0.2 EU/dl (0.2)
[2020-04-23 02:42] VITALS: BP 125/75; PULSE 67; RESP 18; TEMP 36.7; O2SAT 100
== END 2020-04-23 02:45 | disposition home or self-care (01) ==
PROVIDERS: Emergency Provider Emergency Medicine; PCP Emergency Medicine
DX: R10.84 Generalized abdominal pain (principal); K59.00 Constipation, unspecified; F41.8 Other specified anxiety disorders; K21.9 Gastro-esophageal reflux disease without esophagitis; R01.1 Cardiac murmur, unspecified; F17.210 Nicotine dependence, cigarettes, uncomplicated; Z87.442 Personal history of urinary calculi
CPT/HCPCS: 80053; 81001; 82150; 83690; 84145; 85025; 85651; 86140; 87086; 96365; 96375; 99282; J2405

== ENCOUNTER 2020-05-01 04:50 | Observation (INO) | payer OTHER, SELFPAY ==
[2020-05-01] VITALS (8 sets, daily range): BP systolic 100–158; BP diastolic 41–95; PULSE 80–125; RESP 16–18; TEMP 36.7–36.9; O2SAT 95–99; BMI 29.4; BMI 27.3
--- NOTE | 2020-05-01 05:06 | CT_ITS ---
PROCEDURE: CT ABDOMEN PELVIS W CON CLINICAL INDICATION: abd pain Lower abdominal pain with nausea and vomiting, blood in stool COMPARISON: CT CT ABDOMEN PELVIS W CON from 04/22/2020 TECHNIQUE: IV Contrast: 75ML Isovue 370 Oral Contrast none Axial images obtained with sagittal and coronal reformats. All CT scans at the facility use one or more dose reduction, viz: automated exposure control, ma/kV adjustment per patient size (including targeted exams where dose is matched to indication, i.e. head), or iterative reconstruction technique. FINDINGS: LOWER THORAX: No acute finding ABDOMEN & PELVIS: There is a 4 mm hypodensity in the hepatic dome posteriorly image 13 series 3 unchanged. Probable focal fatty infiltration along the falciform ligament of the liver. The adrenal glands, spleen, pancreas, and kidneys show no acute finding. There is thickening of the wall the stomach which could be due to nondistention or gastritis. There is a mild amount of retained colonic feces. No evidence of appendicitis.. There are few scattered air-fluid levels within the small bowel. These are nondistended. There is thickening the rectum and rectosigmoid junction with mild haziness of the perirectal fat on the right suggesting colitis/proctitis. Small amount fluid is present at this area. No obvious perirectal abscess.. There is a 2 cm crenulated left ovarian cyst consistent with a corpus luteum Subcutaneous nodular density is present within the fat in the right gluteal region and may be due to injection granuloma. IMPRESSION: 1. Mild thickening of the rectosigmoid junction with haziness of the pericolic fat and a small amount fluid in the right [place] rectal/sigmoid junction consistent with colitis/proctitis. No obvious perirectal abscess. Consider follow-up to confirm resolution. 2. Possible enteritis and gastritis.. Dictated by: Balta Carcamo MD 05/01/2020 07:44 Balta Carcamo MD in [place] 05/01/2020 07:44
[2020-05-01 05:15] LABS: Basophils # 0.1 K/mm3 (0-0.2); Basophils % 0.6 % (0.1-2.0); Eosinophils # 0.2 K/mm3 (0.0-0.4); Eosinophils % 0.8 % (0.1-12.0); Hematocrit 41.5 % (37.0-47.0); Hemoglobin 13.8 g/dL (12.2-16.2); Lymphocytes # 5.1 K/mm3 (0.7-4.5); Lymphocytes % 28.6 % (10-50); Mean Corpuscular HGB Conc 33.4 g/dL (31.8-35.4); Mean Corpuscular Hemoglobin 31.5 pg (27.0-31.2); Mean Corpuscular Volume 94.4 fl (81-99); Mean Platelet Volume 8.5 fl (7.4-10.4); Monocytes % 5.6 % (1.7-9.3); Neutrophils # 11.5 K/mm3 (1.8-7.8); Neutrophils % 64.3 % (37.0-80.0); Platelet Count 265 K/mm3 (142-424); Red Cell Distribution Width 13.4 % (11.5-17.5); White Blood Count 17.8 K/mm3 (4.8-10.8)
[2020-05-01 05:16] LABS: Microscopic, Urine URINE MICROSCOPIC (MICROSCOPIC)
[2020-05-01 05:21] LABS: Appearance,Urine CLEAR (Clear); Bilirubin,Urine Negative (Negative); Blood, Urine 1+ (Negative); Color,Urine YELLOW (Yellow); Glucose,Urine (UA) Negative (Negative); Ketones,Urine Negative (Negative); Leukocyte Esterase,Urine 1+ (Negative); Nitrate,Urine Negative (Negative); Protein,Urine Negative (Negative); Specific Gravity, Urine 1.025 (1.005-1.030); Urobilinogen,Urine 0.2 EU/dl (0.2)
[2020-05-01 05:27] LABS: MANUAL DIFFERENTIAL MANUAL DIFFERENTIAL (MANUAL DIFF)
[2020-05-01 05:29] LABS: Alanine Aminotransferase 16 U/L (12-78); Albumin Level 4.8 g/dl (3.5-5.0); Albumin/Globulin Ratio 1.5 (1.1-1.8); Alkaline Phosphatase 73 U/L (38-126); Amylase 95 U/L (30-110); Anion Gap 12.8 mEq/L (5-15); Aspartate Amino Transferase 25 U/L (14-36); Bilirubin,Total 0.3 mg/dl (0.2-1.3); Blood Urea Nitrogen 7 mg/dl (7-17); Calcium 9.7 mg/dl (8.4-10.2); Carbon Dioxide 23 mmol/L (22.0-30.0); Chloride 106 mmol/L (98-107); Creatinine Clearance Estimated 92 mL/min (50-200); Estimated Glomerular Filt Rate 64 ml/min (>60); GFR (African American) 77 ML/MIN (>60); Globulin 3.2 g/dL (1.3-3.2); Glucose 117 mg/dl (74-100); Lactic Acid 1.1 mmol/L (0.7-2.1); Lipase 169 U/L (23-300); Potassium 3.8 mmoL/L (3.5-5.1); Sodium 138 mmol/L (136-145)
[2020-05-01 05:30] LABS: Adenovirus,PCR Not Detected (NotDetected); Bordetella Pertussis Not Detected (NotDetected); Chlamydophila Pneumoniae, PCR Not Detected (NotDetected); Coronavirus 19, PCR Not Detected (NotDetected); Coronavirus 229E Not Detected (NotDetected); Coronavirus NL63 Not Detected (NotDetected); Coronavirus OC43 Not Detected (NotDetected); Coronovirus HKU1,PCR Not Detected (NotDetected); Human Metapneumovirus Not Detected (NotDetected); Influenza A, PCR Not Detected (NotDetected); Influenza AH1, 2009 Not Detected (NotDetected); Influenza AH1, PCR Not Detected (NotDetected); Influenza AH3,PCR Not Detected (NotDetected); Influenza B, PCR Not Detected (NotDetected); Mycoplasma Pneumoniae, PCR Not Detected (NotDetected); Parainfluenza 1, PCR Not Detected (NotDetected); Parainfluenza 2, PCR Not Detected (NotDetected); Parainfluenza 3, PCR Not Detected (NotDetected); Parainfluenza 4, PCR Not Detected (NotDetected); Respiratory Syncytial Virus Not Detected (NotDetected); Rhinovirus/Enterovirus Not Detected (NotDetected)
[2020-05-01 05:34] LABS: C-Reactive Protein 4.3 mg/L (0-4)
[2020-05-01 05:35] LABS: Benzodiazepines Screen,Urine Positive ng/ml (<200)
[2020-05-01 05:36] LABS: Amphetamine/Metha Screen,Urine Negative ng/ml (<1000); Barbiturates Screen,Urine Negative ng/ml (<200)
[2020-05-01 05:37] LABS: Cannabinoid Screen,Urine Positive ng/ml (<50)
[2020-05-01 05:37] LABS: Occult Blood,Stool Positive (Negative)
[2020-05-01 05:38] LABS: Cocaine Screen,Urine Negative ng/ml (<300); Methadone Screen,Urine Negative ng/ml (<300)
[2020-05-01 05:39] LABS: Lymphocytes % 15 % (10-50); Monocytes % 1 % (2-9); Neutrophils % 81 % (42-76); Opiate Screen,Urine Positive ng/ml (<300); Phencyclidine Screen,Urine Negative ng/ml (<25); Platelet Estimate Normal; RBC Morphology Normal; Total Cells Counted 100
[2020-05-01 05:48] LABS: Procalcitonin 0.045 ng/mL (0.0-2.0)
[2020-05-01 06:04] LABS: Erythrocyte Sedimentation Rate 19 mm/hr (0-20)
--- NOTE | 2020-05-01 06:35 | HMH.EDNVD ---
ED Disposition Clinical Impression: Enteritis, Overweight (BMI 25.0-29.9), Tobacco use, Anxiety, SIRS (systemic inflammatory response syndrome) UTI (urinary tract infection) Qualifiers: Urinary tract infection type: site unspecified Hematuria presence: without hematuria Qualified Code(s): N39.0 - Urinary tract infection, site not specified Disposition: Admitted as Observation Condition on Discharge: Good Instructions: DI for Diarrhea and Traveler's Diarrhea -- Adult, DI for Diarrhea and Traveler's Diarrhea -- Child, DI for Nausea -- Adult, DI for Nausea -- Child Referrals: Julian Garland MD [Primary Care Provider] - - Critical Care Critical Care Time: No Attestation: On 05/01/20, the high probability of a clinically significant, sudden or life threatening deterioration of the following system(s) required my full and direct attention, intervention and personal management. The time I documented below is in addition to time spent performing reported procedures but includes the following listed in this critical care notation. Medical Decision Making - Medical Records Medical records reviewed: Yes: I reviewed the patient's medical records. - [place] Inquiry Pt receiving controlled substance: No Vital Signs: 05/01/20 04:51 05/01/20 05:06 05/01/20 05:42 Temperature 98.4 F Temperature Source Oral Pulse Rate 121 H 81 Pulse Rate [Right] 125 H Respiratory Rate 16 Blood Pressure 135/95 H 100/54 L Blood Pressure [Right Arm] 158/71 H Blood Pressure Mean 108 75 Blood Pressure Mean [Right Arm] 100 02 Sat by Pulse Oximetry 96 99 96 Oxygen Delivery Method Room Air 05/01/20 06:35 Temperature Temperature Source Pulse Rate Pulse Rate [Right] Respiratory Rate Blood Pressure 112/78 Blood Pressure [Right Arm] Blood Pressure Mean 90 Blood Pressure Mean [Right Arm] 02 Sat by Pulse Oximetry 95 Oxygen Delivery Method - Lab Data Lab results reviewed: Yes: I reviewed the patient's lab results. Lab Results 05/01/20 05:00: Urine Color Yellow, Urine Appearance Clear, Urine pH 6.0, Ur Specific [place] 1.025, Urine Protein Negative, Urine Glucose (UA) Negative, Urine Ketones Negative, Urine Blood 1+, Urine Nitrate Negative, Urine Bilirubin Negative, Urine Urobilinogen 0.2, Ur Leukocyte Esterase 1+ A, Urine RBC 3-5, Urine WBC 10-20 05/01/20 05:00: WBC 17.8 H, RBC 4.40, Hgb 13.8, Hct 41.5, MCV 94.4, MCH 31.5 H, MCHC 33.4, RDW 13.4, Plt Count 265, MPV 8.5, Neut % (Auto) 64.3, Lymph % (Auto) 28.6, [place] % (Auto) 5.6, Eos % (Auto) 0.8, Baso % (Auto) 0.6, Neut # (Auto) 11.5 H, Lymph # (Auto) 5.1 H, [place] # (Auto) 1.0, Eos # (Auto) 0.2, Baso # (Auto) 0.1, Total Counted 100, Neutrophils % (Manual) 81 H, Band Neutrophils % 3.0, Lymphocytes % (Manual) 15, Monocytes % (Manual) 1 L, Platelet Estimate Normal, RBC Morphology Normal, ESR 19 05/01/20 05:00: Sodium 138, Potassium 3.8, Chloride 106, Carbon Dioxide 23, Anion Gap 12.8, BUN 7, Creatinine 1.00, Estimated Creat Clear 92, Estimated GFR 64, Est GFR ( Amer) 77, Glucose 117 H, Calcium 9.7, Total Bilirubin 0.3, AST 25, ALT 16, Alkaline Phosphatase 73, C-Reactive Protein 4.3 H, Total Protein 8.0, Albumin 4.8, Globulin 3.2, Albumin/Globulin Ratio 1.5, Amylase 95, Procalcitonin 0.045 05/01/20 05:00: Urine Opiates Screen Positive H, Urine Methadone Screen Negative, Ur Barbituates Screen Negative, Ur Phencyclidine Scrn Negative, Ur Amphetamines Screen Negative, U Benzodiazepines Scrn Positive H, Urine Cocaine Screen Negative, U Marijuana (THC) Screen Positive H 05/01/20 05:00: Lipase 169 05/01/20 05:00: Lactate 1.1 05/01/20 05:24: Chlamy pneumoniae PCR Not detected, Adenovirus (PCR) Not detected, B. pertussis DNA (PCR) Not detected, Coronavirus OC43 (PCR) Not detected, Coronavirus HKU1 (PCR) Not detected, Coronavirus 229E (PCR) Not detected, SARS-CoV-2 (PCR) Not detected, Coronavirus NL63 (PCR) Not detected, Human Metapneumovir PCR Not detected, Influenza A (H1) PCR Not detected
--- NOTE | 2020-05-01 07:34 | PC.NURSE ---
Pt arrived to the floor at this time.
--- NOTE | 2020-05-01 09:18 | HMH.HP ---
*Admission Date: 05/01/20 *Chief complaint: rectal pain *History of present illness: this pt presented to the ed with lower abd pain with brrb - pt with progressive pain with dec stool and has episodes of vomiting and abd pain with meals - pt was noted to have abn ct abd/pelvis in the ed with proctitis and was admitted for ivf and abx with gi consult [facility] History I have reviewed the patient's past medical history: Yes Medical History: Reports:: Anxiety, Depression, Gastroesophageal Reflux Disease(GERD), Heart Murmur, Kidney Stones Denies:: Cancer, Diabetes Mellitus Type 1, Diabetes Mellitus Type 2, Internal Pacemaker, MRSA, Seizures *Have you ever received a pneumonia vaccine?: No *Have you received a flu vaccine this season?: No Other Medical History: Reports: Other. Denies: Blood Transfusion Reaction Laterality Cases: Bilateral: Other Other Surgeries: Yes: BSO, Colonoscopy, Hernia Repair, Tubal Ligation. 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 Review of Systems - Review of Systems Review of systems:: pertinent systems reviewed and negative unless documented below - Constitutional Denies fever(s) - Eyes Denies change in vision - ENT Denies sore throat - *Cardiovascular Denies chest pain at rest, Denies shortness of breath - *Respiratory Denies cough - *Gastrointestinal Reports abdominal pain, Reports constipation, Reports cramping, Reports bright, red blood in stools, Reports nausea, Reports vomiting - *Genitourinary Denies blood in urine - *Musculoskeletal Denies joint pain - Integumentary/Breasts Denies rash - *Neurologic Denies localized weakness, Denies tingling/numbness/burning sensations, Denies seizure-like activity - Psychiatric Denies behavioral changes, Denies confusion Meds Home Medications Medication Instructions Recorded Confirmed Type fluticasone propionate 50 1 mcg INTRANASAL NEEDED PRN 08/03/19 05/01/20 Rx mcg/actuation nasal #18.2 ml spray,suspension gabapentin 600 mg tablet 600 mg PO TID #90 tab 02/22/20 05/01/20 Rx ondansetron HCL [Zofran 4mg Tab] 4 mg PO TID #30 tab 04/23/20 05/01/20 Rx ALPRAZolam [Xanax 0.5mg tab] 0.5 mg PO TID 05/01/20 05/01/20 History Ibuprofen 800 mg PO BIDP PRN 05/01/20 05/01/20 History Allergies Allergy/AdvReac Type Severity Reaction Status Date / Time hydrocodone [HYDROCODONE] Allergy Unknown Unknown Verified 02/22/20 11:25 allergy reaction sulfamethoxazole Allergy Unknown Unknown Verified 02/22/20 11:25 [From BACTRIM] allergy reaction tramadol [TRAMADOL] Allergy Unknown Unknown Verified 02/22/20 11:25 allergy reaction trimethoprim [From BACTRIM] Allergy Unknown Unknown Verified 02/22/20 11:25 allergy reaction Epidural Allergy Itchy Uncoded 02/22/20 11:25 Exam Vital signs and Labs for Last 24 Hours: Temp Pulse Resp BP Pulse Ox 98.1 F 83 16 134/73 99 05/01/20 07:53 05/01/20 07:53 05/01/20 07:53 05/01/20 07:53 05/01/20 07:53 Laboratory Results - last 24 hr 05/01/20 05:00: Urine Color Yellow, Urine Appearance Clear, Urine pH 6.0, Ur Specific [place] 1.025, Urine Protein Negative, Urine Glucose (UA) Negative, Urine Ketones Negative, Urine Blood 1+, Urine Nitrate Negative, Urine Bilirubin Negative, Urine Urobilinogen 0.2, Ur Leukocyte Esterase 1+ A, Urine RBC 3-5, Urine WBC 10-2
--- NOTE | 2020-05-01 10:38 | P.CONPHA_ITS ---
[facility] VTE Monitoring - Patient Demographics Admission date: 05/01/20 Report Date: 05/01/20 Time: 10:38 Allergies/Adverse Reactions: Patient Allergies hydrocodone [HYDROCODONE] Allergy (Unknown, Verified 02/22/20 11:25) Unknown allergy reaction sulfamethoxazole [From BACTRIM] Allergy (Unknown, Verified 02/22/20 11:25) Unknown allergy reaction tramadol [TRAMADOL] Allergy (Unknown, Verified 02/22/20 11:25) Unknown allergy reaction trimethoprim [From BACTRIM] Allergy (Unknown, Verified 02/22/20 11:25) Unknown allergy reaction Epidural Allergy (Uncoded 02/22/20 11:25) Itchy Height: 1.57 m Weight: 67.84 kg Patient Problems: Current Active Problems Enteritis (Acute) SIRS (systemic inflammatory response syndrome) (Acute) UTI (urinary tract infection) (Acute) Tobacco use (Acute) Overweight (BMI 25.0-29.9) (Acute) Anxiety (Chronic) - VTE Risk Labs: VTE Related Lab Results Hgb 13.8 g/dL (12.2-16.2) 05/01/20 05:00 Hct 41.5 % (37.0-47.0) 05/01/20 05:00 Plt Count 265 K/mm3 (142-424) 05/01/20 05:00 BUN 7 mg/dl (7-17) 05/01/20 05:00 Creatinine 1.00 mg/dl (0.52-1.04) 05/01/20 05:00 Estimated Creat Clear 92 mL/min (50-200) 05/01/20 05:00 VTE Score: 1 - Prophylaxis VTE Prophylaxis Ordered?: Yes Types of VTE Prophylaxis: TEDS Knee High Location of Applied Device: Bilateral Lower Extremeties
--- NOTE | 2020-05-01 14:53 | PC.NURSE ---
PT IS RESTING IN BED. PT STATED SHE REALLY THINKS THE BENTYL HAS REALLY HELPED WITH HER ABDOMINAL DISCOMFORT. PT HAS BEEN AMBULATING TO THE BATHROOM. TOLERATING REGULAR DIET W/O DIFFICULTY BUT PT STATES SHE CAN ONLY EAT IN SMALL PORTIONS BUT SHE ALSO STATES EATING IN SMALL PORTIONS IN NORMAL FOR HER. LUNG SOUNDS CLEAR. ABDOMEN SOFT/NON TENDER WITH ACTIVE BOWEL SOUNDS. VSS. SKIN C/D/I. WILL CONTINUE TO MONITOR.
[2020-05-02] VITALS (16 sets, daily range): BP systolic 94–152; BP diastolic 37–84; PULSE 52–85; RESP 16–19; TEMP 36.4–37; O2SAT 94–100; BMI 27.6
--- NOTE | 2020-05-02 06:57 | PC.NURSE ---
PT. C/O NAUSEA X2 (SEE PROVIDER NOTIFICATION); TX WITH ZOFRAN AND PHENERGAN. C/O ABD CRAMPING X1, TX WITH MORPHINE, EFFECTIVENESS NOTED. PT. REPORTED 2 STOOLS WITH BLOOD CLOTS IN IT , PT. FLUSHED THE FIRST, THE SECOND BM WAS EXAMINED BY THIS RN AND NO DUARTE BLOOD WAS PRESENT. PT. DENIES SOA OR DIZZINESS. 0500- REPORT GIVEN TO Patel LEZAMA RN
[2020-05-02 07:56] LABS: Basophils % 0.1 % (0.1-2.0); Eosinophils # 0.1 K/mm3 (0.0-0.4); Eosinophils % 0.3 % (0.1-12.0); Hematocrit 35.9 % (37.0-47.0); Hemoglobin 11.9 g/dL (12.2-16.2); Lymphocytes # 2.5 K/mm3 (0.7-4.5); Lymphocytes % 11.7 % (10-50); Mean Corpuscular Hemoglobin 31.9 pg (27.0-31.2); Mean Corpuscular Volume 96.9 fl (81-99); Mean Platelet Volume 9.9 fl (7.4-10.4); Monocytes # 1.2 K/mm3 (0.1-1.0); Monocytes % 5.5 % (1.7-9.3); Neutrophils # 17.2 K/mm3 (1.8-7.8); Neutrophils % 82.4 % (37.0-80.0); Platelet Count 218 K/mm3 (142-424); Red Blood Count 3.71 M/mm3 (4.20-5.40); Red Cell Distribution Width 13.3 % (11.5-17.5); White Blood Count 20.9 K/mm3 (4.8-10.8)
[2020-05-02 08:02] LABS: MANUAL DIFFERENTIAL MANUAL DIFFERENTIAL (MANUAL DIFF)
[2020-05-02 08:06] LABS: Anion Gap 10.2 mEq/L (5-15); Blood Urea Nitrogen 6 mg/dl (7-17); Carbon Dioxide 19 mmol/L (22.0-30.0); Chloride 112 mmol/L (98-107); Creatinine Clearance Estimated 122 mL/min (50-200); Estimated Glomerular Filt Rate 96 ml/min (>60); GFR (African American) 117 ML/MIN (>60); Glucose 129 mg/dl (74-100); Potassium 4.2 mmoL/L (3.5-5.1); Sodium 137 mmol/L (136-145)
[2020-05-02 08:08] LABS: Calcium 8.7 mg/dl (8.4-10.2)
--- NOTE | 2020-05-02 08:58 | P.PN_ITS ---
Internal Medicine - PN: Subj *Date: 05/02/20 *Time: 08:58 Interval history: pt states still having nausea and rectal pain with bleeding Exam Vital signs and Labs for Last 24 Hours: Temp Pulse Resp BP Pulse Ox 98.3 F 63 19 115/55 L 96 05/02/20 08:00 05/02/20 08:00 05/02/20 08:00 05/02/20 08:00 05/02/20 08:00 Laboratory Results - last 24 hr 05/02/20 07:08: WBC 20.9 H*, RBC 3.71 L, Hgb 11.9 L, Hct 35.9 L, MCV 96.9, MCH 31.9 H, MCHC 33.0, RDW 13.3, Plt Count 218, MPV 9.9, Neut % (Auto) 82.4 H, Lymph % (Auto) 11.7, [place] % (Auto) 5.5, Eos % (Auto) 0.3, Baso % (Auto) 0.1, Neut # (Auto) 17.2 H, Lymph # (Auto) 2.5, [place] # (Auto) 1.2 H, Eos # (Auto) 0.1, Baso # (Auto) 0.0 05/02/20 07:08: Sodium 137, Potassium 4.2, Chloride 112 H, Carbon Dioxide 19 L, Anion Gap 10.2, BUN 6 L, Creatinine 0.70 D, Estimated Creat Clear 122, Estimated GFR 96, Est GFR ( Amer) 117 D, Glucose 129 H, Calcium 8.7 D I & O for Last 24 hours: Intake & Output 04/29/20 04/30/20 05/01/20 05/02/20 11:59 11:59 11:59 11:59 Intake Total 360 / 360 720 / 720 Balance 360 / 360 720 / 720 Weight 149 lb 9 oz Microbiology Reports for the Last 24 Hours: Microbiology 05/01/20 05:00 Urine,Clean Catch Urine Culture - Preliminary NO GROWTH AFTER 24 HOURS - Constitutional no acute distress - *Routine HEENT Exam Head: Present: normocephalic Eye: Present: PERRL ENT: Present: mucous membranes moist - *Routine Neck Exam Present: supple. Absent: lymphadenopathy - *Routine Respiratory Exam Present: CTA bilaterally - *Routine Cardiovascular Exam Present: RRR - *Routine Abdominal Exam Present: soft, normoactive bowel sounds. Absent: tenderness - *Routine Extremities Exam Present: normal capillary refill. Absent: cyanosis, clubbing, edema - *Routine Skin Exam Present: warm. Absent: rash - *Routine Neurological Exam Present: alert, oriented X3 - Routine Psychiatric Exam Present: normal affect Assessment and Plan (1) SIRS (systemic inflammatory response syndrome) Status: Acute Category: Medical Code(s): R65.10 - Systemic inflammatory response syndrome (SIRS) of non-infectious origin without acute organ dysfunction (2) UTI (urinary tract infection) Status: Acute Qualifiers: Urinary tract infection type: site unspecified Hematuria presence: without hematuria Qualified Code(s): N39.0 - Urinary tract infection, site not spe cified Category: Medical Code(s): N39.0 - Urinary tract infection, site not specified (3) Tobacco use Status: Acute Category: Social Hx Code(s): Z72.0 - Tobacco use (4) Overweight (BMI 25.0-29.9) Status: Acute Category: Medical Code(s): E66.3 - Overweight (5) Colitis Status: Acute Category: Medical Code(s): K52.9 - Noninfective gastroenteritis and colitis, unspecified - Assessment and plan all Dx Assessment and Plan for all problems:: rounded with dr jose all orders per dr damon martin consult
[2020-05-02 09:32] LABS: Lymphocytes % 16 % (10-50); Monocytes % 2 % (2-9); Neutrophils % 82 % (42-76); Total Cells Counted 100
[2020-05-02 09:33] LABS: Platelet Estimate Normal; RBC Morphology Normal
[2020-05-02 13:11] LABS: Urine Pregnancy, HCG Qual. Negative (Negative)
--- NOTE | 2020-05-02 14:02 | HMH.PROC ---
[facility] Procedure Note Procedure Note:: Upper Endoscopy Procedure Report: Esophagogastroduodenoscopy with cold biopsies Endoscopost: Mike Crawford II, MD Referring Physician: Julian Garland MD Date of Procedure: May 02, 2020 Equipment: Olympus GIF 190 standard upper endoscope Sedation: MAC sedation Indications: Mrs. Carney is a 34-year-old female with dyspepsia and reflux. She also has had nausea and vomiting. She reports bloating and gassiness. She came in with right lower quadrant and right flank pain as well as generalized abdominal pain. She also had rectal bleeding. She had a CAT scan on 05/01 that showed thickening of the rectosigmoid junction as well as evidence of enteritis and gastritis. She was Hemoccult positive. Her white blood cell count was 17.8. She had a normal hemoglobin 13.8 and hematocrit 41.5. She does report belching and early satiety. She reports no melena or weight loss. Procedure: Prior to the procedure, a history and physical exam was performed, and patient's medications and allergies were reviewed. The risks, benefits and alternatives of the sedation and procedure were discussed with the patient. All questions were answered and informed consent was obtained. The patient was brought to the procedure room. Patient identification and proposed procedure were verified by the physician and the nurse. The patient was placed in a left lateral decubitus position and the scope was passed under direct vision. Throughout the procedure, the patient's blood pressure, pulse, and oxygen saturations were monitored continuously. The upper GI endoscopy was accomplished without difficulty. The patient tolerated the procedure well. Findings: The scope was passed directly into the upper esophagus and advanced to the third portion of the duodenum. The post bulbar duodenum and duodenal bulb were normal with normal mucosa and conniventes. Cold biopsies were taken from the post bulbar duodenum to rule out celiac disease. The scope was withdrawn through a normal duodenal bulb and pylorus into the stomach. There was some mild linear reactive gastropathy of the antrum. There was bile reflux. There was also some retained digestive solid food content in the body and fundus of the stomach. Upon retroflexion there was no hiatal hernia. 2 biopsies were taken in the antrum and along the lesser curvature for histology to rule out gastritis and/or H pylori. The scope was then withdrawn into the esophagus. There was no evidence of reflux esophagitis or Lester's. Biopsies were taken at the GE junction. The remainder of the esophageal mucosa was normal. Impression: 1. Nonerosive GERD 2. Bile reflux with reactive gastropathy 3. Gastric dysmotility (retained solid food content)?rule out gastroparesis Plan: I will follow-up the biopsies. I would recommend promotility therapy (Reglan). I will also discuss dietary measures and additional treatment options. I will proceed with sigmoidoscopy.
--- NOTE | 2020-05-02 14:12 | P.PCN_ITS ---
[facility] Procedure Note Procedure Note:: Flexible Sigmoidoscopy Procedure Report: Sigmoidoscopy with cold biopsies Endoscopist: Mike Crawford II, MD Referring physician: Julian Garland MD Date of Procedure: May 02, 2020 Equipment: Olympus 180 variable stiffness pediatric colonoscope Sedation: MAC sedation Indication: Mrs. Carney is a 34-year-old female with right lower quadrant abdominal pain. She also has had rectal bleeding and some tenesmus. She has diarrhea that alternates with constipation. She reports some bowel urgency. She has noted some mucus with her bowel movements. She reports generalized abdominal discomfort with gassiness and bloating. Her paternal grandmother had colon cancer. She reports no weight loss. She was Hemoccult positive. Her hemoglobin 13.8 and hematocrit 41.5 were normal. She did have a CT scan of the abdomen and pelvis yesterday showing thickening at the rectosigmoid junction suggestive of proctitis. Procedure: Prior to the procedure, a history and physical exam was performed, and patient's medications and allergies were reviewed. The risks, benefits and alternatives of the sedation and procedure were discussed with the patient. All questions were answered and informed consent was obtained. The patient was brought to the procedure room. Patient identification and proposed procedure were verified by the physician and the nurse. The patient was placed in a left lateral decubitus position and the scope was passed under direct vision. Throughout the procedure, the patient's blood pressure, pulse, and oxygen saturations were monitored continuously. The colonoscopy was accomplished without difficulty. The patient tolerated the procedure well. Findings: On digital rectal examination, there was normal rectal tone and there were no external hemorrhoids. The scope was then inserted through the anal canal into the rectum and advanced to 50 cm. The entire sigmoid colon and rectosigmoid colon were normal. Most of the rectum was normal but in the last 3 cm of rectum there was moderate granularity and evidence of moderate distal rectal proctitis. There were grade 1 internal hemorrhoids. Cold biopsies were taken from the area of proctitis. Impression: 1. 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 I will place the patient on Canasa suppositories. I would consider a short prednisone taper. I will discuss the findings as well as diet and treatment options with the patient and family.
--- NOTE | 2020-05-02 15:06 | P.PN_ITS ---
[facility] Anesthesia Checklist - Patient Identification Patient Identification: Arm Band - Structural Data Admitted From: Home Planned Operative Procedure/s: egd/flex sigmoidoscopy Consent for Planned Operative Procedure(s) Verified: Yes Verified Documents: Surgical Consent, History and Physical - Additional verifications Anesthesia Reactions: No Hx Blood Transfusions: No Blood Transfusion Reaction: No - Airway Assessment C-Spine Mobility Assessed: Yes (mp2) TMJ Mobility Assessed: Yes Dentition: Good Dentition - Neurological Assessment Level of Consciousness: Awake, Alert - Anesthesia Plan Anesthesia Risk discussed: Yes Anesthesia Plan: Verified ASA Class: II Anesthesia Type: MAC [facility] History I have reviewed the patient's past medical history: Yes Medical History: Reports:: Anxiety, Depression, Gastroesophageal Reflux Disease(GERD), Heart Murmur, Kidney Stones Denies:: Cancer, Diabetes Mellitus Type 1, Diabetes Mellitus Type 2, Internal Pacemaker, MRSA, Seizures *Have you ever received a pneumonia vaccine?: No *Have you received a flu vaccine this season?: No Other Medical History: Reports: Other. Denies: Blood Transfusion Reaction Anesthesia experience/problems:: nac Laterality Cases: Bilateral: Other Other Surgeries: Yes: BSO, Colonoscopy, Hernia Repair, Tubal Ligation. 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
--- NOTE | 2020-05-02 18:01 | PC.NURSE ---
PATIENT IS A&O X4, LUNGS ARE CLEAR, PULSES EQUAL. PATIENT COMPLAINS OF PAIN 10/10 AND STATES THAT THE MORPHINE DOES NOT WORK. THIS RN LEFT TWO MESSAGES FOR MD. DR. CURTIS ON FLOOR, THIS RN REPORTED INFORMATION, AND PER MD, HE WILL TAKE CARE OF PATIENT. NO OTHER CONCERNS AT THIS TIME.
[2020-05-03] VITALS: BP 133/70; PULSE 89; RESP 17; TEMP 36.7; O2SAT 100
[2020-05-03 04:00] VITALS: BP 127/51; PULSE 53; RESP 16; TEMP 36.7; O2SAT 98
[2020-05-03 05:15] VITALS: BMI 27.5
--- NOTE | 2020-05-03 05:47 | PC.NURSE ---
Pt. has not reported a BM. Reports nausea x2; tx with phenergan and zofran; effectiveness noted. Reports pain x1; tx with norco; effectiveness noted. No episodes of vomiting.
[2020-05-03 07:16] VITALS: BP 114/75; PULSE 54; RESP 18; TEMP 37.7; O2SAT 100
[2020-05-03 07:29] LABS: Basophils % 0.2 % (0.1-2.0); Eosinophils # 0.1 K/mm3 (0.0-0.4); Eosinophils % 0.6 % (0.1-12.0); Hematocrit 37.8 % (37.0-47.0); Hemoglobin 12.3 g/dL (12.2-16.2); Lymphocytes # 2.5 K/mm3 (0.7-4.5); Mean Corpuscular HGB Conc 32.5 g/dL (31.8-35.4); Mean Corpuscular Hemoglobin 32.2 pg (27.0-31.2); Mean Corpuscular Volume 98.9 fl (81-99); Monocytes # 0.5 K/mm3 (0.1-1.0); Monocytes % 3.8 % (1.7-9.3); Neutrophils # 10.8 K/mm3 (1.8-7.8); Neutrophils % 77.5 % (37.0-80.0); Platelet Count 232 K/mm3 (142-424); Red Blood Count 3.82 M/mm3 (4.20-5.40); Red Cell Distribution Width 13.4 % (11.5-17.5); White Blood Count 13.9 K/mm3 (4.8-10.8)
[2020-05-03 07:35] LABS: Anion Gap 11.4 mEq/L (5-15); Blood Urea Nitrogen 8 mg/dl (7-17); Calcium 8.7 mg/dl (8.4-10.2); Carbon Dioxide 23 mmol/L (22.0-30.0); Chloride 109 mmol/L (98-107); Creatinine Clearance Estimated 122 mL/min (50-200); Estimated Glomerular Filt Rate 96 ml/min (>60); GFR (African American) 117 ML/MIN (>60); Glucose 111 mg/dl (74-100); Potassium 4.4 mmoL/L (3.5-5.1); Sodium 139 mmol/L (136-145)
--- NOTE | 2020-05-03 08:49 | HMH.DCSUM ---
General - General Admission date:: 05/01/20 Discharge date: 05/03/20 HPI HPI: this pt presented to the ed with lower abd pain with brrb - pt with progressive pain with dec stool and has episodes of vomiting and abd pain with meals - pt was noted to have abn ct abd/pelvis in the ed with proctitis and was admitted for ivf and abx with gi consult Hospital Course Hospital Course: this pt presented to the ed with lower abd pain with brrb - pt with progressive pain with dec stool and has episodes of vomiting and abd pain with meals - pt was noted to have abn ct abd/pelvis in the ed with proctitis and was admitted for ivf and abx with gi consult 05/01/[address]: FINDINGS: LOWER THORAX: No acute finding ABDOMEN & PELVIS: There is a 4 mm hypodensity in the hepatic dome posteriorly image 13 series 3 unchanged. Probable focal fatty infiltration along the falciform ligament of the liver. The adrenal glands, spleen, pancreas, and kidneys show no acute finding. There is thickening of the wall the stomach which could be due to nondistention or gastritis. There is a mild amount of retained colonic feces. No evidence of appendicitis.. There are few scattered air-fluid levels within the small bowel. These are nondistended. There is thickening the rectum and rectosigmoid junction with mild haziness of the perirectal fat on the right suggesting colitis/proctitis. Small amount fluid is present at this area. No obvious perirectal abscess.. There is a 2 cm crenulated left ovarian cyst consistent with a corpus luteum Subcutaneous nodular density is present within the fat in the right gluteal region and may be due to injection granuloma. IMPRESSION: 1. Mild thickening of the rectosigmoid junction with haziness of the pericolic fat and a small amount fluid in the right Madeline rectal/sigmoid junction consistent with colitis/proctitis. No obvious perirectal abscess. Consider follow-up to confirm resolution. 2. Possible enteritis and gastritis.. Dictated by: Carlos Alberto 05/02/20 Esophagogastroduodenoscopy with cold biopsies Impression: 1. Nonerosive GERD 2. Bile reflux with reactive gastropathy 3. Gastric dysmotility (retained solid food content)?rule out gastroparesis Plan: I will follow-up the biopsies. I would recommend promotility therapy (Reglan). I will also discuss dietary measures and additional treatment options. I will proceed with sigmoidoscopy. 05/02/20 Flexible Sigmoidoscopy with cold biopsies: Impression: 1. 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 I will place the patient on Canasa suppositories. I would consider a short prednisone taper. I will discuss the findings as well as diet and treatment options with the patient and family. Labwork this AM: WBC 13.9, H/H 12.3/37.8, Plt 232 Chemistries non-actionable 34 YOF sitting up in bed, reports she is feeling better with some continued R Sided Abd aching. She reports she is ready to go home, D/C inst discussed and she agrees to take meds per inst and attend all appt.s. PLAN: 1. D/C Home today 2. Pred per inst 3. Canasa per inst 4. Reglan per inst 5. F/U PCP 1 week 6. F/U GI 1 month Objective Vital signs: Temp Pulse Resp BP Pulse Ox 99.8 F H 54 L 18 114/75 100 05/03/20 07:16 05/03/20 07:16 05/03/20 07:16 05/03/20 07:16 05/03/20 07:16 no acute distress - *Routine HEENT Exam Head: Present: normocephalic Eye: Present: EOMI ENT: Present: mucous membranes moist - *Routine Neck Exam Present: trachea midline. Absent: tracheal deviation - *Routine Respiratory Exam Present: CTA bilaterally. Absent: accessory muscle use - *Routine Cardiovascular Exam Present: RRR - *Routine Abdominal Exam Present: soft, normoactive bowel sounds, tenderness. Absent: guarding, firm - *Routine Extremities Exam Present: full ROM, pulses intact, ari
--- NOTE | 2020-05-03 11:35 | HMH.PHAINT ---
DISCHARGE MEDICATION EDUCATION COMPLETED. REPEATED FOR PT, UNSURE OF PT'S UNDERSTANDING.
== END 2020-05-03 11:38 | disposition home or self-care (01) ==
LOC: ER 04:57 → 2ND 06:56
PROVIDERS: Internal Medicine Gastroenterology; Nurse Practitioner Family; Admitting Provider Emergency Medicine; Emergency Provider Emergency Medicine; PCP Emergency Medicine; Visit Provider Emergency Medicine
PROC: 0DJ08ZZ Inspection of Upper Intestinal Tract, Via Natural or Artificial Opening Endoscopic (ICD-10-PCS; CPT 43235; principal; 2020-05-02 14:30)
PROC: 0DJD8ZZ Inspection of Lower Intestinal Tract, Via Natural or Artificial Opening Endoscopic (ICD-10-PCS; CPT 45330; 2020-05-02 14:30)
DX: K52.9 Noninfective gastroenteritis and colitis, unspecified (principal); N39.0 Urinary tract infection, site not specified; R65.10 Systemic inflammatory response syndrome (SIRS) of non-infectious origin without acute organ dysfunction; Z72.0 Tobacco use; K64.0 First degree hemorrhoids; K21.9 Gastro-esophageal reflux disease without esophagitis; K62.89 Other specified diseases of anus and rectum; K31.9 Disease of stomach and duodenum, unspecified; Z79.899 Other long term (current) drug therapy; Z88.2 Allergy status to sulfonamides; Z88.5 Allergy status to narcotic agent
CPT/HCPCS: 43239; 45331; 36415; 74177; 80048; 80053; 80305; 81001; 81025; 82150; 82272; 83605; 83690; 84145; 85007; 85025; 85651; 86140; 87040; 87086; 87581; 87633; 87798; 88305; 88342; 96365; 96375; 99284; G0328; G0378; J2405; Q9967

== ENCOUNTER 2020-05-06 09:27 | Emergency (ER) | payer OTHER, SELFPAY ==
[2020-05-06 09:28] VITALS: BP 162/92; PULSE 103; RESP 20; TEMP 36.7; O2SAT 100; BMI 27.2
--- NOTE | 2020-05-06 09:32 | HMH.EDGENADL ---
ED Disposition Clinical Impression: Abdominal pain Qualifiers: Abdominal location: lower abdomen, unspecified Qualified Code(s): R10.30 - Lower abdominal pain, unspecified Disposition: Home, Self-Care Condition on Discharge: Good Instructions: DI for Acute Abdominal Pain Referrals: Thomas Chadwick MD [Staff Physician] - 3 days Julian Garland MD [Primary Care Provider] - 3 days - Critical Care Critical Care Time: No Attestation: On , the high probability of a clinically significant, sudden or life threatening deterioration of the following system(s) required my full and direct attention, intervention and personal management. The time I documented below is in addition to time spent performing reported procedures but includes the following listed in this critical care notation. Medical Decision Making - Medical Records Medical records reviewed: Yes: I reviewed the patient's medical records. - Stuart Inquiry Pt receiving controlled substance: No Vital Signs: 05/06/20 09:28 Temperature 98.0 F Temperature Source Oral Pulse Rate [Left Radial] 103 H Respiratory Rate 20 Blood Pressure [Right Arm] 162/92 H Blood Pressure Mean [Right Arm] 115 Blood Pressure Source [Right Arm] Automatic Cuff Blood Pressure Position [Right Arm] Sitting 02 Sat by Pulse Oximetry 100 Oxygen Delivery Method Room Air - Lab Data Lab results reviewed: Yes: I reviewed the patient's lab results. Lab Results 05/06/20 09:31: Urine Color Yellow, Urine Appearance Sl cloudy, Urine pH 6.5, Ur Specific [place]bury 1.020, Urine Protein Negative, Urine Glucose (UA) Negative, Urine Ketones Negative, Urine Blood 3+, Urine Nitrate Negative, Urine Bilirubin Negative, Urine Urobilinogen 0.2, Ur Leukocyte Esterase Negative, Urine RBC 10-20, Urine WBC 5-10, Ur Squamous Epith Cells 3-5, Urine Bacteria Trace 05/06/20 09:31: Urine HCG, Qual Negative 05/06/20 09:40: WBC 17.0 H, RBC 4.71, Hgb 15.0, Hct 45.2, MCV 96.0, MCH 31.9 H, MCHC 33.2, RDW 13.2, Plt Count 341 D, MPV 8.5, Neut % (Auto) 64.0, Lymph % (Auto) 29.3, Marin % (Auto) 5.9, Eos % (Auto) 0.6, Baso % (Auto) 0.3, Neut # (Auto) 10.9 H, Lymph # (Auto) 5.0 H, Marin # (Auto) 1.0, Eos # (Auto) 0.1, Baso # (Auto) 0.1, Total Counted 100, Neutrophils % (Manual) 62, Lymphocytes % (Manual) 33, Monocytes % (Manual) 5, Platelet Estimate Normal, RBC Morphology Normal 05/06/20 09:40: Sodium 140, Potassium 3.2 L, Chloride 102, Carbon Dioxide 28, Anion Gap 13.2, BUN 9, Creatinine 0.90, Estimated Creat Clear 95, Estimated GFR 72, Est GFR ( Amer) 87, Glucose 104 H, Calcium 9.5, Total Bilirubin 0.3, AST 24, ALT 23, Alkaline Phosphatase 64, Total Protein 7.8, Albumin 4.8, Globulin 3.0, Albumin/Globulin Ratio 1.6 Result diagrams: 05/06/20 09:40 05/06/20 09:40 Orders (Tests/Meds): ED MEDICATIONS Generic Name Dose Route Start Last Admin Trade Name Freq PRN Reason Stop Dose Admin Sodium Chloride 1,000 mls @ 999 mls/hr 05/06/20 10:00 05/06/20 10:03 Sod Chlor 0.9% 1000ml Bag IV 05/06/20 11:00 999 mls/hr .[id number] CASSANDRA Administration Discontinued Medications Generic Name Dose Route Start Last Admin Trade Name Freq PRN Reason Stop Dose Admin Ketorolac Tromethamine 30 mg 05/06/20 09:54 05/06/20 10:03 Ketorolac 30mg/Ml Vial IV 05/06/20 09:55 30 mg ONCE ONE Administration Ondansetron HCl 4 mg 05/06/20 09:54 05/06/20 10:03 Ondansetron 4mg/2ml Vial IV 05/06/20 09:55 4 mg ONCE ONE Administration ORDERS Category Date Time Status US transvaginal Stat Exams 05/06/20 09:46 Taken - US Data US Images: Other (TransVaginal) Findings Narrative: No ovarian torsion, ruptured cysts Medical Decision Narrative: Patient with chronic leukocytosis. She is afebrile. Urinalysis does not suggest infection. Transvaginal ultrasound shows no signs of ovarian torsion, hemorrhagic ruptured ovarian cyst. We will have her follow-up outpatient with gynecology as planned. No focal tenderness in t
[2020-05-06 09:42] LABS: Microscopic, Urine URINE MICROSCOPIC (MICROSCOPIC)
--- NOTE | 2020-05-06 09:46 | US_ITS ---
PROCEDURE: US TRANSVAGINAL CLINICAL INDICATION: lower abd pain COMPARISON: US TVP US TRANSVAGINAL PREG from 03/04/2016 FINDINGS: UTERUS: 8cm x 5cmx 4cm with a combined endometrial thickness of LEFT OVARY: [id number] with a volume of 9.4ml. RIGHT OVARY: [id number] with a volume of 5ml. No pelvic mass or cul-de-sac fluid. IMPRESSION: Negative pelvic ultrasound Dictated by: Balta Carcamo MD 05/06/2020 15:00 Balta Carcamo MD in [place] 05/06/2020 15:00
[2020-05-06 09:49] LABS: Appearance,Urine SL CLOUDY (Clear); Bilirubin,Urine Negative (Negative); Blood, Urine 3+ (Negative); Color,Urine YELLOW (Yellow); Glucose,Urine (UA) Negative (Negative); Ketones,Urine Negative (Negative); Leukocyte Esterase,Urine Negative (Negative); Nitrate,Urine Negative (Negative); PH,Urine 6.5 (5.0-8.5); Protein,Urine Negative (Negative); Urobilinogen,Urine 0.2 EU/dl (0.2)
[2020-05-06 09:58] LABS: Urine Pregnancy, HCG Qual. Negative (Negative)
[2020-05-06 10:02] LABS: Basophils # 0.1 K/mm3 (0-0.2); Basophils % 0.3 % (0.1-2.0); Eosinophils # 0.1 K/mm3 (0.0-0.4); Eosinophils % 0.6 % (0.1-12.0); Hematocrit 45.2 % (37.0-47.0); Lymphocytes % 29.3 % (10-50); Mean Corpuscular HGB Conc 33.2 g/dL (31.8-35.4); Mean Corpuscular Hemoglobin 31.9 pg (27.0-31.2); Mean Platelet Volume 8.5 fl (7.4-10.4); Monocytes % 5.9 % (1.7-9.3); Neutrophils # 10.9 K/mm3 (1.8-7.8); Platelet Count 341 K/mm3 (142-424); Red Blood Count 4.71 M/mm3 (4.20-5.40); Red Cell Distribution Width 13.2 % (11.5-17.5)
--- NOTE | 2020-05-06 10:04 | PC.NURSE ---
Pt to US
[2020-05-06 10:05] LABS: MANUAL DIFFERENTIAL MANUAL DIFFERENTIAL (MANUAL DIFF)
[2020-05-06 10:14] LABS: Bacteria,Urine Trace /lpf
[2020-05-06 10:15] LABS: Alanine Aminotransferase 23 U/L (12-78); Albumin Level 4.8 g/dl (3.5-5.0); Albumin/Globulin Ratio 1.6 (1.1-1.8); Alkaline Phosphatase 64 U/L (38-126); Anion Gap 13.2 mEq/L (5-15); Aspartate Amino Transferase 24 U/L (14-36); Bilirubin,Total 0.3 mg/dl (0.2-1.3); Blood Urea Nitrogen 9 mg/dl (7-17); Calcium 9.5 mg/dl (8.4-10.2); Carbon Dioxide 28 mmol/L (22.0-30.0); Chloride 102 mmol/L (98-107); Creatinine Clearance Estimated 95 mL/min (50-200); Estimated Glomerular Filt Rate 72 ml/min (>60); GFR (African American) 87 ML/MIN (>60); Glucose 104 mg/dl (74-100); Potassium 3.2 mmoL/L (3.5-5.1); Sodium 140 mmol/L (136-145); Total Protein,Serum 7.8 g/dl (6.3-8.2)
[2020-05-06 10:30] LABS: Lymphocytes % 33 % (10-50); Monocytes % 5 % (2-9); Neutrophils % 62 % (42-76); Platelet Estimate Normal; RBC Morphology Normal; Total Cells Counted 100
[2020-05-06 11:34] VITALS: BP 158/87; PULSE 78; RESP 16; TEMP 36.6; O2SAT 98
== END 2020-05-06 11:36 | disposition home or self-care (01) ==
PROVIDERS: Emergency Provider Emergency Medicine; PCP Emergency Medicine
DX: R10.30 Lower abdominal pain, unspecified (principal); F41.8 Other specified anxiety disorders; K21.9 Gastro-esophageal reflux disease without esophagitis; R01.1 Cardiac murmur, unspecified; Z87.442 Personal history of urinary calculi; F17.210 Nicotine dependence, cigarettes, uncomplicated; Z79.899 Other long term (current) drug therapy
CPT/HCPCS: 76830; 80053; 81001; 81025; 85007; 85025; 96365; 96375; 99283; J2405

== ENCOUNTER 2020-05-25 18:25 | Emergency (ER) | payer OTHER, SELFPAY ==
[2020-05-25 18:27] VITALS: BP 140/76; PULSE 111; RESP 17; TEMP 36.7; O2SAT 99; BMI 28.9
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
[2020-05-25 19:33] VITALS: BP 139/77; PULSE 91; RESP 16; TEMP 37.1; O2SAT 97
== END 2020-05-25 19:34 | disposition home or self-care (01) ==
PROVIDERS: Emergency Provider Family Medicine; PCP Emergency Medicine
DX: M79.672 Pain in left foot (principal); G89.29 Other chronic pain; F41.8 Other specified anxiety disorders; K21.9 Gastro-esophageal reflux disease without esophagitis; Z87.442 Personal history of urinary calculi; Z88.2 Allergy status to sulfonamides; F17.210 Nicotine dependence, cigarettes, uncomplicated
CPT/HCPCS: 96372; 99281

== ENCOUNTER 2020-05-26 17:34 | Emergency (ER) | payer OTHER, SELFPAY ==
[2020-05-26 17:35] VITALS: BP 138/82; PULSE 119; RESP 16; TEMP 36.7; O2SAT 98; BMI 28.9
--- NOTE | 2020-05-26 18:03 | XR_ITS ---
PROCEDURE: XR FOOT LT MIN 3V CLINICAL INDICATION: foot ankle pain COMPARISON: CR XR ANKLE LT MIN 3V from 05/26/2020 FINDINGS: No fracture or dislocation. No lytic or blastic change. There is normal mineralization. The joint spaces are well-preserved. No significant degenerative/arthritic changes. No erosive changes evident. Other findings:None. IMPRESSION: No acute findings. Dictated by: Balta Carcamo MD 05/26/2020 21:35 Balta Carcamo MD in [facility] 05/26/2020 21:35
--- NOTE | 2020-05-26 18:12 | HMH.EDGENADL ---
ED Disposition Clinical Impression: Pain, foot, chronic Disposition: Home, Self-Care Condition on Discharge: Good Prescriptions: methocarbamoL [Methocarbamol 500mg Tablet] 500 mg PO BID 10 Days #20 tab Transmission Status: Pending to [facility] Referrals: Julian Garland MD [Primary Care Provider] - - Critical Care Critical Care Time: No Attestation: On 05/26/20, the high probability of a clinically significant, sudden or life threatening deterioration of the following system(s) required my full and direct attention, intervention and personal management. The time I documented below is in addition to time spent performing reported procedures but includes the following listed in this critical care notation. Medical Decision Making - Medical Records Medical records reviewed: Yes: I reviewed the patient's medical records. - Stuart Inquiry Pt receiving controlled substance: No Vital Signs: 05/26/20 17:35 Temperature 98.1 F Temperature Source Oral Pulse Rate [Radial] 119 H Respiratory Rate 16 Blood Pressure [Right Arm] 138/82 Blood Pressure Mean [Right Arm] 100 Blood Pressure Position [Right Arm] Sitting 02 Sat by Pulse Oximetry 98 Oxygen Delivery Method Room Air Orders (Tests/Meds): ORDERS Category Date Time Status XR ankle LT min 3V Stat Exams 05/26/20 18:03 Taken XR foot LT min 3V Stat Exams 05/26/20 18:03 Taken Medical Decision Narrative: 34-year-old female presents again with chronic leg pain. It appears today that her symptoms are localized to her foot and ankle region. No new traumatic injury. Obtaining x-rays as she request and I am not concerned for DVT today as she has no posterior calf pain or tenderness or swelling and she has 2+ pulses and is neurovascularly intact. 1 foot x-ray read by myself were negative for acute fracture or intervention needed tonight. She has nausea as well plan to give Phenergan intramuscular. Plan to discharge with Robaxin and return precautions. General Adult HPI - General Chief complaint: PAIN Stated complaint: left leg pain.nauseous Time Seen by Provider: 05/26/20 17:35 Mode of Arrival: Ambulatory Limitations: No Limitations Description of Symptoms (Recalled from ER Triage Doc. by RN): TO ED PER [facility] CAR WITH C/O LT LOWER LEG PAIN X 6 MONTHS PT STATES SEEN BY [employer] AT PCP'S OFFICE YESTERDAY AND TOLD SHE HAS A BLOOD CLOT. PT ALSO SEEN YESTERDAY IN ED FOR SAME - History of Present Illness HPI narrative: 34-year-old female presents with left lower leg pain. She says the pain is worse in her ankle and the bottom of her foot. She was evaluated yesterday and given Tylenol codeine however she says the pain has worsened today. She has no calf swelling or posterior calf pain. No fever no chills. No traumatic injuries. The pain has been ongoing for 6 months and she does have appointment to follow-up with physical therapy Onset (ago): month(s) (6) Radiation: non-radiation Severity: mild Quality: dull Consistency: intermittent Relieving factors: rest Exacerbating factors: movement - Related Data Previous Rx's Medication Instructions Recorded Mesalamine [Canasa] 1,000 mg RC DAILY 30 Days #30 05/03/20 supp.rect Metoclopramide HCl [Reglan 10mg 10 mg PO QID 30 Days #120 tab 05/03/20 Tab] alprazolam 0.5 mg tablet 0.5 mg PO TID #90 tab 05/10/20 diclofenac sodium 1 % topical gel 2 g TOPICAL QID #100 g 05/10/20 fluticasone propionate 50 1 mcg INTRANASAL NEEDED PRN 05/10/20 mcg/actuation nasal #18.2 ml spray,suspension gabapentin 600 mg tablet 600 mg PO TID #90 tab 05/10/20 lidocaine 5 % topical patch 1 patch TOPICAL DAILY #30 each 05/10/20 ondansetron HCl 4 mg tablet 8 mg PO TID #30 tab 05/13/20 cyclobenzaprine 10 mg tablet 10 mg PO TID PRN #60 tab 05/19/20 topiramate 25 mg tablet 25 mg PO DAILY #20 tab 05/25/20 ubrogepant 100 mg tablet 100 mg PO ONCE #10 tab 05/25/20 methocarbamoL [Methocarbamol 500mg 500 mg PO BID 10 Days
[2020-05-26 19:36] VITALS: BP 132/79; PULSE 95; RESP 16; TEMP 36.6; O2SAT 99
== END 2020-05-26 19:36 | disposition home or self-care (01) ==
PROVIDERS: Emergency Provider Emergency Medicine; PCP Emergency Medicine
DX: M79.672 Pain in left foot (principal); F41.8 Other specified anxiety disorders; K21.9 Gastro-esophageal reflux disease without esophagitis; R01.1 Cardiac murmur, unspecified; F17.210 Nicotine dependence, cigarettes, uncomplicated; Z88.2 Allergy status to sulfonamides; Z79.899 Other long term (current) drug therapy
CPT/HCPCS: 73610; 73630; 96372; 99282

== ENCOUNTER 2020-05-28 09:30 | Emergency (ER) | payer OTHER, SELFPAY ==
[2020-05-28 09:35] VITALS: BP 141/89; PULSE 101; RESP 19; TEMP 37.1; O2SAT 98; BMI 28.9
[2020-05-28 10:10] LABS: UTC Strep Screen (Rapid) Negative (Negative)
--- NOTE | 2020-05-28 10:29 | HMH.EDUTC ---
[facility] [place] Clinical Impression: Strep throat Disposition: Home, Self-Care Condition on Discharge: Good Instructions: DI for Strep Throat Additional Instructions: Start antibiotics today be sure to take it as ordered with the full length of time although you should start feeling better in 24-48 hours. Change toothbrush and toothpaste 24-48 hours after starting antibiotics Tylenol or Motrin as needed for fever or pain Encourage fluids, water, Gatorade, Powerade, try cold fluids, popsicles, ice cream will make it feel better You are contagious for 24 hours. Avoid kissing anyone, no eating or drinking after anyone. You are contagious. Follow-up the ER for new or worsening symptoms or no noticeable improvement over the next 24-48 hours. Follow-up with PCP this week. Prescriptions: Azithromycin [Zithromax 250mg tab] 250 mg PO DIRECTED #6 tab Transmission Status: Pending to [facility] Referrals: Julian Garland MD [Primary Care Provider] - Time of Disposition: 10:32 Medical Decision Making - Stuart Inquiry Pt receiving controlled substance: No Vital Signs: 05/28/20 09:35 Temperature 98.8 F Temperature Source Oral Pulse Rate [Right Brachial] 101 H Respiratory Rate 19 Blood Pressure [Right Arm] 141/89 H Blood Pressure Mean [Right Arm] 106 Blood Pressure Source [Right Arm] Automatic Cuff Blood Pressure Position [Right Arm] Sitting 02 Sat by Pulse Oximetry 98 Oxygen Delivery Method Room Air - Lab Data Lab Results 05/28/20 09:50: Strep Scn Rapid Clinic Negative Orders (Tests/Meds): ORDERS Category Date Time Status Strep Screen Confirmation Stat Micro 05/28/20 09:50 Received [facility] [place]PI - General Chief complaint: Urgent [facility] Stated complaint: sore throat, raw feeling Time Seen by Provider: 05/28/20 10:29 Mode of Arrival: Ambulatory Source of Information: Patient Limitations: No Limitations Description of Symptoms (Recalled from Triage Doc. by RN): PATIENT C/O SORE THROAT, STATING IT HAS BEEN THIS WAY SINCE SHE WAS LAST HOSPITALIZED HEENT Symptoms (Recalled from RN notes): Yes Resp Symptoms (Recalled from RN notes): No Skin Symptoms (Recalled from RN notes): No MS Symptoms (Recalled from RN notes): No Functional Status (Recalled from RN notes): WNL - History of Present Illness Provider Complaint: 34 yr old female presnets for sore throat for over a week. - Related Data Previous Rx's Medication Instructions Recorded Mesalamine [Canasa] 1,000 mg RC DAILY 30 Days #30 05/03/20 supp.rect Metoclopramide HCl [Reglan 10mg 10 mg PO QID 30 Days #120 tab 05/03/20 Tab] alprazolam 0.5 mg tablet 0.5 mg PO TID #90 tab 05/10/20 diclofenac sodium 1 % topical gel 2 g TOPICAL QID #100 g 05/10/20 fluticasone propionate 50 1 mcg INTRANASAL NEEDED PRN 05/10/20 mcg/actuation nasal #18.2 ml spray,suspension gabapentin 600 mg tablet 600 mg PO TID #90 tab 05/10/20 lidocaine 5 % topical patch 1 patch TOPICAL DAILY #30 each 05/10/20 ondansetron HCl 4 mg tablet 8 mg PO TID #30 tab 05/13/20 cyclobenzaprine 10 mg tablet 10 mg PO TID PRN #60 tab 05/19/20 topiramate 25 mg tablet 25 mg PO DAILY #20 tab 05/25/20 ubrogepant 100 mg tablet 100 mg PO ONCE #10 tab 05/25/20 methocarbamoL [Methocarbamol 500mg 500 mg PO BID 10 Days #20 tab 05/26/20 Tablet] Azithromycin [Zithromax 250mg 250 mg PO DIRECTED #6 tab 05/28/20 tab] Allergies Allergy/AdvReac Type Severity Reaction Status Date / Time sulfamethoxazole Allergy Unknown Unknown Verified 05/25/20 11:09 [From BACTRIM] allergy reaction tramadol [TRAMADOL] Allergy Unknown Unknown Verified 05/25/20 11:09 allergy reaction trimethoprim [From BACTRIM] Allergy Unknown Unknown Verified 05/25/20 11:09 allergy reaction Epidural Allergy Itchy Uncoded 05/25/20 11:09 - Worker's Comp Is this a Worker's Comp case?: No [facility] History - Hepatitis A Screen Drug use history
[2020-05-28 10:35] VITALS: BP 141/89; PULSE 101; RESP 19; TEMP 37.1; O2SAT 98
== END 2020-05-28 10:38 | disposition home or self-care (01) ==
PROVIDERS: Emergency Provider Nurse Practitioner Family; PCP Emergency Medicine
DX: J02.0 Streptococcal pharyngitis (principal); F41.8 Other specified anxiety disorders; K21.9 Gastro-esophageal reflux disease without esophagitis; R01.1 Cardiac murmur, unspecified; F17.210 Nicotine dependence, cigarettes, uncomplicated; Z87.442 Personal history of urinary calculi; Z79.899 Other long term (current) drug therapy
CPT/HCPCS: 87880; 99202; G0463

== ENCOUNTER → 2020-05-30 15:26 | Outpatient (CLI) | payer OTHER, SELFPAY ==
--- NOTE | 2020-05-30 15:27 | CA_ITS ---
APPROVED REPORT Bilateral Lower Extremity Venous Study for Venous Competence., DVT. 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: SÁNCHEZ Indications Lower Extremity Pain: Left L calf pain Vein Imaging CFV (L): compressive, spontaneous, phasic, augmentation FEM (L): compressive, spontaneous, phasic, augmentation POP (L): compressive, spontaneous, phasic, augmentation PTV (L): compressive, spontaneous, phasic, augmentation GSV (L): compressive, spontaneous, phasic, augmentation SSV (L): compressive, spontaneous, phasic, augmentation Peroneals (L):compressive, spontaneous, phasic, augmentation GAS (L): compressive, spontaneous, phasic, augmentation Findings No evidence of DVT or superficial thrombophlebitis in the veins scanned of the left lower extremity. Conclusion No evidence of DVT or superficial thrombophlebitis in the veins scanned of the left lower extremity. Electronically signed by : Balta Carcamo MD 05/30/2020 18:29:15
== END ==
PROVIDERS: PCP Emergency Medicine; Visit Provider Nurse Practitioner Family
DX: M79.662 Pain in left lower leg (principal)
CPT/HCPCS: 93971

== ENCOUNTER 2020-06-11 22:13 | Emergency (ER) | payer OTHER, SELFPAY ==
--- NOTE | 2020-06-11 | XR_ITS ---
PROCEDURE INFORMATION: Exam: XR Chest Exam date and time: 06/11/2020 12:00 AM Age: 34 years old Clinical indication: Device placement; Ett placement (vent status); Patient HX: Code. Et tube placement TECHNIQUE: Imaging protocol: XR of the chest. Views: 1 view. COMPARISON: No relevant prior studies available. FINDINGS: Tubes, catheters and devices: External defibrillator pads overlie the left chest. ET tube terminates at C7. Lungs: Unremarkable. No consolidation. Pleural spaces: Unremarkable. No pleural effusion. No pneumothorax. Heart/Mediastinum: Unremarkable. No cardiomegaly. Bones/joints: Unremarkable. IMPRESSION: ET tube terminates at C7. No acute cardiopulmonary findings.
[2020-06-11 22:13] VITALS: BP 000/00; PULSE 0; RESP 10; O2SAT 92; BMI 20.7
[2020-06-11 22:30] VITALS: BP 105/46; PULSE 134; RESP 10; O2SAT 100
[2020-06-11 22:42] VITALS: BMI 28.3
[2020-06-11 22:43] LABS: Basophils # 0.1 K/mm3 (0-0.2); Basophils % 0.7 % (0.1-2.0); Eosinophils # 0.1 K/mm3 (0.0-0.4); Eosinophils % 0.8 % (0.1-12.0); Hematocrit 38.9 % (37.0-47.0); Hemoglobin 11.7 g/dL (12.2-16.2); Lymphocytes # 7.3 K/mm3 (0.7-4.5); Lymphocytes % 62.1 % (10-50); Mean Corpuscular HGB Conc 30.1 g/dL (31.8-35.4); Mean Corpuscular Hemoglobin 32.1 pg (27.0-31.2); Mean Corpuscular Volume 106.7 fl (81-99); Mean Platelet Volume 8.5 fl (7.4-10.4); Monocytes # 0.4 K/mm3 (0.1-1.0); Monocytes % 3.4 % (1.7-9.3); Neutrophils # 3.9 K/mm3 (1.8-7.8); Platelet Count 111 K/mm3 (142-424); Red Blood Count 3.65 M/mm3 (4.20-5.40); Red Cell Distribution Width 13.6 % (11.5-17.5); White Blood Count 11.8 K/mm3 (4.8-10.8)
[2020-06-11 22:45] VITALS: BP 82/35; PULSE 117; RESP 10; O2SAT 99
--- NOTE | 2020-06-11 22:46 | ECG_ITS ---
APPROVED REPORT Exam: Resting ECG HR:118 bpm ECG Measurements Heart Rate 118 AXES MA 122 P 79 QRSd 78 QRS 83 QT 334 T 73 QTc 468 Conclusion Sinus tachycardia Low voltage QRS ST abnormality, possible electrolyte effect Abnormal ECG Electronically signed by : Stephen Lozoya, 06/12/2020 07:29:24
[2020-06-11 22:47] LABS: Alanine Aminotransferase 171 U/L (12-78); Albumin Level 2.7 g/dl (3.5-5.0); Albumin/Globulin Ratio 1.2 (1.1-1.8); Alkaline Phosphatase 82 U/L (38-126); Anion Gap 21.4 mEq/L (5-15); Aspartate Amino Transferase 221 U/L (14-36); Bilirubin,Total 0.2 mg/dl (0.2-1.3); Blood Urea Nitrogen 10 mg/dl (7-17); Calcium 8.3 mg/dl (8.4-10.2); Carbon Dioxide 11 mmol/L (22.0-30.0); Chloride 105 mmol/L (98-107); Creatinine Clearance Estimated 86 mL/min (50-200); Estimated Glomerular Filt Rate 52 ml/min (>60); GFR (African American) 63 ML/MIN (>60); Globulin 2.2 g/dL (1.3-3.2); Glucose 367 mg/dl (74-100); Potassium 4.4 mmoL/L (3.5-5.1); Sodium 133 mmol/L (136-145); Total Protein,Serum 4.9 g/dl (6.3-8.2)
[2020-06-11 22:50] LABS: MANUAL DIFFERENTIAL MANUAL DIFFERENTIAL (MANUAL DIFF)
[2020-06-11 23:00] VITALS: BP 143/82; PULSE 132; RESP 10; O2SAT 100
[2020-06-11 23:15] VITALS: BP 118/63; PULSE 127; RESP 10; O2SAT 99
[2020-06-11 23:17] LABS: Eosinophils % 2 % (0-3); Lymphocytes % 58 % (10-50); Monocytes % 9 % (2-9); Neutrophils % 26 % (42-76); Nucleated Red Blood Cells 1; Total Cells Counted 100
[2020-06-11 23:18] LABS: Macrocytosis 1+
[2020-06-11 23:19] LABS: Platelet Estimate Slight Decrease
--- NOTE | 2020-06-11 23:36 | HMH.EDCPR ---
ED Disposition Clinical Impression: Cardiac arrest, Respiratory failure requiring intubation Disposition: Xfer Short-Term Hosp Condition on Discharge: Critical Referrals: Provider,Referral, MD [Primary Care Provider] - Forms: Transfer Record - ED - Critical Care Critical Care Time: Yes Attestation: On 06/11/20, the high probability of a clinically significant, sudden or life threatening deterioration of the following system(s) required my full and direct attention, intervention and personal management. The time I documented below is in addition to time spent performing reported procedures but includes the following listed in this critical care notation. Total Critical Care Time: 60 Vital system(s) involved:: Circulatory Failure, Respiratory Failure My critical care processes included: Assessment & monitoring of V/S, Initial and Re-exams, Data Review/Interpretation, Coordinating Care, Medication Orders and management, Documentation [facility] Code Documentation - Arrest Information Outside of Hospital The Code Document Section documentation for [id number] Rosanne Carney was populated with data that defaulted in from the key bed installer in the Code Assessment on f_Reg Service Date] to provide within this report, the status and treatment of the patient in the ED during a Code. This documentation will be supplemented with my direct findings within the body of the report. Treatment Initiated By: EMS Arrest Witnessed: No Medical Decision Making - Medical Records Medical records reviewed: Yes: I reviewed the patient's medical records. - Stuart Inquiry Pt receiving controlled substance: No Vital Signs: 06/11/20 22:27 Pulse Rate [Right Femoral] 0 L Respiratory Rate 10 L Blood Pressure [Right Arm] 000/00 L 02 Sat by Pulse Oximetry 92 L Oxygen Delivery Method Ambu-Bag Oxygen Flow Rate (LPM) 100 - Lab Data Lab results reviewed: Yes: I reviewed the patient's lab results. Lab Results 06/11/20 22:25: WBC 11.8 H, RBC 3.65 L, Hgb 11.7 L, Hct 38.9, MCV 106.7 H, MCH 32.1 H, MCHC 30.1 L, RDW 13.6, Plt Count 111 L, MPV 8.5, Neut % (Auto) 33.0 L, Lymph % (Auto) 62.1 H, [place] % (Auto) 3.4, Eos % (Auto) 0.8, Baso % (Auto) 0.7, Neut # (Auto) 3.9, Lymph # (Auto) 7.3 H, [place] # (Auto) 0.4, Eos # (Auto) 0.1, Baso # (Auto) 0.1, Total Counted 100, Neutrophils % (Manual) 26 L, Band Neutrophils % 5.0, Lymphocytes % (Manual) 58 H, Monocytes % (Manual) 9, Eosinophils % (Manual) 2, Nucleated RBCs 1, Platelet Estimate Slight decrease, RBC Morphology Not Reportable, Macrocytosis 1+ 06/11/20 22:25: Sodium 133 L, Potassium 4.4, Chloride 105, Carbon Dioxide 11 L, Anion Gap 21.4 H, BUN 10, Creatinine 1.20 H, Estimated Creat Clear 86, Estimated GFR 52 L, Est GFR ( Amer) 63, Glucose 367 H, Calcium 8.3 L, Total Bilirubin 0.2, AST 221 H, ALT 171 H, Alkaline Phosphatase 82, Total Protein 4.9 L D, Albumin 2.7 L, Globulin 2.2, Albumin/Globulin Ratio 1.2 Result diagrams: 06/11/20 22:25 06/11/20 22:25 Orders (Tests/Meds): ORDERS Category Date Time Status Arterial Blood Gas Routine RT 06/11/20 22:35 Received Arterial Blood Gas Routine RT 06/11/20 23:00 Received - Radiology Data #1 Image(s): Chest Image Reviewed: Yes I reviewed the patient's radiology image Preliminary Findings: Normal/NAD (et tube -ok) - ECG Data Tracing #1 Arrhythmias present: sinus tach Ischemic changes: non-specific ST-T wave changes - Physician Consults Physician Consulted: jarred - ed Reason -: Transfer to another facilty Medical Decision Narrative: code blue and obtained pulse and bp but no spont resp - intubated and abg and labs were obtained and transfered to CPR HPI - General Chief Complaint: Cardiac Arrest/CPR Stated Complaint: code 500 Time Seen by Provider: 06/11/20 22:40 Mode of Arrival: EMS Source of Information: EMS, Medical Record Limitations: unresponsive Description of Symptoms (Recalled from ER Triage Doc. b
[2020-06-11 23:45] VITALS: BP 94/48
[2020-06-12 00:01] VITALS: PULSE 134; RESP 10; O2SAT 98
--- NOTE | 2020-06-12 00:03 | PC.NURSE ---
2213 Pt arrived via [facility] CPR in progress LMA with Ambu bag in use. PT PEA rate 36 on arrival no spontaneous respiration Bilateral breath sounds auscultated with course crackles through out. IO per EMS in right ospina, NS 500ml infusing EMS reports 3 Epi's and 2mg Narcan given COUNTRY SINGER. 2215 PEA rate 36 2215 1 Amp Epi given 2216 Sinus jeremy 42 1 Amp Atropine given IO 2216 2mg Narcan given IO 2217 Palpable pulse at rate 110 2218 FSBS 399 2220 BP 113/96 HR 115 O2 sat 90 2224 ABG drawn 2226 7.5 ETT placed 19 cm at lip placed by Dr Garland Good color change noted and bilat breath sounds auscultated throughout 2229 1 amp Bicarb Given 2231 Chest X-ray done ETT confirmed 2232 [address] in left Nare 200 ml Gastric fluid suctioned 2240 18 ga IV started in left AC 1 liter NS infusing per Pressure bag 2241 16 fr Brannon placed with clear yellow urine 2247 Levophed started at 10 MCG/ min 2249 1 AMP Bicarb given 2250 Levophed increased to 15mcg/min bp 89/44 2255 bp 151/87 Levophed decreased to 10 mcg/min 2350 Pt left via Air method Report called to [facility] to Harry BARTON
[2020-06-12 03:39] VITALS: BP 151/87; PULSE 125; RESP 10; TEMP 36.1
[2020-06-14 07:20] LABS: ABG HCO3 37 mmhg (22.0-26.0); ABG PCO2 75.6 mmhg (35.0-45.0); ABG PO2 142.4 mmhg (80-100)
[2020-06-14 07:21] LABS: ABG Base Excess 8.6 mmol/L (-2.4-2.3); ABG Oxygen Saturation 98 % (90-100); ABG TCO2 39.3 mmhg (23-27); Allen's Test ACCEPTABLE; Oxygen ROOM AIR %; Source R RADIAL
[2020-06-14 07:22] LABS: ABG PH 6.73 mmol/L (7.35-7.45)
[2020-06-14 07:23] LABS: ABG Base Excess -23.9 mmol/L (-2.4-2.3); ABG HCO3 12.7 mmhg (22.0-26.0); ABG TCO2 15.6 mmhg (23-27)
[2020-06-14 07:24] LABS: ABG Oxygen Saturation 87 % (90-100); Allen's Test ACCEPTABLE; Source R RADIAL
== END 2020-06-11 23:50 | disposition short-term general hospital (02) ==
PROVIDERS: Emergency Provider Emergency Medicine
DX: I46.9 Cardiac arrest, cause unspecified (principal); J96.90 Respiratory failure, unspecified, unspecified whether with hypoxia or hypercapnia; F11.10 Opioid abuse, uncomplicated; K21.9 Gastro-esophageal reflux disease without esophagitis; R01.1 Cardiac murmur, unspecified; F41.8 Other specified anxiety disorders
CPT/HCPCS: 31500; 71045; 80053; 82803; 85007; 85025; 93005; 96365; 96367; 96375; 96376; 99291; C1751; J2310